=== PATIENT | female | born 1930 | race Caucasian/White ===

== ENCOUNTER → 2017-01-05 | Outpatient (CLI) | payer MEDICARE, OTHER ==
[~2017-01-05] MED LIST: /ALBU4TAB GT; ACET50TA PO; ADV500INH INH; ADVA115INH INH; ALBU0.5N IN; ALBU83IN INH; ALPH0.1S OU; ASPI325T PO; ASPI325T5 PO; ATOR1TAB18 PO; BRIM0.15 OP; BRIM2OPD OU; CALC600T9 PO; CALCTAB75 PO; CLON0.5T PO; DELT1TAB PO; DOXY10CA PO; DOXY75CA3 PO; FOSA70TA PO; KLON0.5T PO; LIPI10TA PO; LIPI80TA PO; LISI-542 PO; LISI10TA4 PO; LISI5TAB PO; METO-207 PO; METO50TA4 PO; METOPR; METOPROL; METOPROLOL; MICR10CA PO; MULT1TAB8 PO; MULTTAB4 PO; NITR4TASL SL; NITROQUICK SL; PARO20TA2 PO; PAXI20TA3 PO; PRED10TA2 PO; PRED1TAB32 PO; PRED20TA PO; SENO8.6T9 PO; SYMB80INH INH; TOPR25TA PO; TYLE650T30 PO; VITA100066 PO; VITAD1000T PO; [UNRECOGNIZED DRUG - CODE] EX
--- NOTE | 2017-01-07 08:37 | RADONC ---
RADIATION ONCOLOGY FOLLOWUP NOTE: DATE: 01/05/2017 CHART NUMBER: [id number] DIAGNOSIS: Breast cancer. STAGE: I, C3kD5H1 ECOG PERFORMANCE STATUS: 3 FOLLOWUP NOTE: Ms. 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 The patient presents today reporting that she is doing quite well with no complaints at this time related to her radiation therapy or disease. She has no breast or bone pain. The patient continues to have COPD and is using nasal oxygen. She has shortness of breath and is causing significant physical limitations. The patient's review of systems is positive for the physical limitations secondary to shortness of breath with her COPD and the need for nasal oxygen. She denies nausea, vomiting, fevers, chills, night sweats, diplopia, headaches, anxiety, depression, anorexia, weight loss, visual disturbances, chest pain, urinary or bowel difficulties, bone pain or neurological problems. PHYSICAL EXAMINATION: The patient is an elderly white female was quite frail in no acute distress and using nasal oxygen. HEENT exam is normocephalic, atraumatic. Extraocular movements are intact. There is no palpable cervical, supraclavicular, infraclavicular, axillary, or inguinal lymphadenopathy present. Lungs are clear to auscultation and percussion. Heart has a regular rate and rhythm. Abdomen is benign with no hepatosplenomegaly, masses, or tenderness. Breast examination reveals no masses or discharge bilaterally. Skeletal examination reveals no tenderness to pressure or percussion of the bony skeleton. Extremities reveal no clubbing, cyanosis, or edema. Neurologic exam is grossly intact, as is the remainder of the physical examination. ASSESSMENT: The patient is clinically AMA at this time and will be seen by us again in July for further followup. She will also continue to be followed by her other physicians as well. cc: Umberto Knott
== END ==
LOC: M ONCR 15:09
PROVIDERS: ATTEND Radiology Radiation Oncology
DX: C50.411 Malignant neoplasm of upper-outer quadrant of right female breast (principal)

== ENCOUNTER → 2017-07-25 | Outpatient (CLI) | payer MEDICARE, OTHER ==
[~2017-07-25] MED LIST changes: -ATOR1TAB18 PO; +ATOR80TA59 PO; +DOXY100T2 PO; -DOXY10CA PO; -METO-207 PO; +METO1TAB7 PO; -PARO20TA2 PO; +PARO20TA3 PO
--- NOTE | 2017-07-26 07:22 | RADONC ---
RADIATION ONCOLOGY FOLLOWUP NOTE DATE: 07/25/2017 CHART NUMBER: [id number] DIAGNOSIS: Right breast cancer STAGE: I A, [id number]. ECOG PERFORMANCE STATUS: 0. FOLLOWUP NOTE: Ms. 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 The patient reports today that she is doing quite well with no complaints at this time related to her radiation therapy or disease. She has no breast or bone pain. REVIEW OF SYSTEMS: The patient's review of systems is positive for the physical limitations secondary to shortness to shortness of breath from her COPD and the need for nasal oxygen. It is otherwise noncontributory. Denies nausea, vomiting, fevers , chills, night sweats, diplopia, headaches, anxiety or depression, anorexia, weight loss, visual disturbances, chest pain, urinary or bowel difficulties, bone pain, or neurological problems. PHYSICAL EXAMINATION: The patient is an elderly white female in no acute distress on nasal oxygen. HEENT exam is normocephalic, atraumatic. Extraocular movements are intact. There is no palpable cervical, supraclavicular, infraclavicular, axillary, or inguinal lymphadenopathy present. Lungs are clear to auscultation and percussion. Heart has a regular rate and rhythm. Abdomen is benign with no hepatosplenomegaly, masses, or tenderness. Breast examination reveals no masses or discharge bilaterally. Skeletal examination reveals no tenderness to pressure or percussion of the bony skeleton. Extremities reveal no clubbing, cyanosis, or edema. Neurologic exam is grossly intact, as is the remainder of the physical examination. ASSESSMENT: The patient is clinically AMA at this time and will be seen by us again in 1 year for further followup. She will also continue be followed by her other physicians as well. cc: MD TATI Manning
== END ==
LOC: M ONCR 10:18
PROVIDERS: ATTEND Radiology Radiation Oncology
DX: C50.411 Malignant neoplasm of upper-outer quadrant of right female breast (principal)

== ENCOUNTER → 2017-08-01 | Outpatient (CLI) | payer MEDICARE, OTHER ==
--- NOTE | 2017-08-01 10:05 | REPMRS ---
Patient History The patient states she had a clinical breast exam in 07/2017. Patient is postmenopausal, has history of breast cancer at age 79, had previous chest radiation therapy at age 79, has history of melanoma skin cancer at age 68, and had previous chemotherapy at age 68. Family history of breast cancer in maternal aunt at age 50 or over. Benign ultrasound-guided core biopsy of the right breast, August 06, 2016. Benign ultrasound-guided core biopsy of the right breast, August 22, 2015. Malignant localization of breast nodule of the right breast, August 19, 2010. Stereotatic Breast Biopsy of the right breast, August 03, 2010. Radiation therapy of the right breast. Digital Woman Screen Mammo: August 01, 2017 - Exam #: [id number] Bilateral CC and MLO view(s) were taken. Technologist: Josette Barahona, Technologist Prior study comparison: August 02, 2016, right breast digital mammo diagnostic unilateral, performed at [facility]. July 26, 2016, digital woman screen mammo performed at [facility]. FINDINGS: There are scattered fibroglandular densities. There is no evidence of cancer on this mammogram. Large coarse benign appearing calcifications are present. No significant changes when compared with prior studies. ASSESSMENT: BI-RADS/ACR category 2 mammogram. Benign finding(s). Recommendation Routine screening mammogram of both breasts in 1 year (for women over age 40). This mammogram was interpreted with the aid of an FDA-approved computer-aided dectection system. Electronically Signed By: Saurabh Marley MD 08/01/17 [id number]
== END ==
LOC: M WHC 08:49
PROVIDERS: ATTEND Radiology Radiation Oncology
DX: Z12.31 Encounter for screening mammogram for malignant neoplasm of breast (principal); Z85.3 Personal history of malignant neoplasm of breast

== ENCOUNTER → 2017-10-10 | Outpatient (REF) | payer MEDICARE, OTHER ==
[2017-10-10 17:39] LABS: ALBUMIN 3.7 GM/DL (3.2-5.2); ALBUMIN/GLOBULIN RATIO 1.19 (1.00-1.93); ALKALINE PHOSPHATASE 61 U/L (45-117); ALT/SGPT 19 U/L (12-78); ANION GAP 6 MEQ/L (8-16); AST/SGOT 24 U/L (7-37); BILIRUBIN,TOTAL 0.7 MG/DL (0.2-1.0); BLOOD UREA NITROGEN 16 MG/DL (7-18); CARBON DIOXIDE LEVEL 36 MEQ/L (21-32); CHLORIDE LEVEL 100 MEQ/L (98-107); CHOLESTEROL LEVEL 155 MG/DL (<200); CREATININE FOR GFR 0.78 MG/DL (0.55-1.02); GLOMERULAR FILTRATION RATE > 60.0 (>32); GLUCOSE, FASTING 90 MG/DL (83-110); POTASSIUM SERUM 4.4 MEQ/L (3.5-5.1); SODIUM LEVEL 142 MEQ/L (136-145); TOTAL PROTEIN 6.8 GM/DL (6.4-8.2); TRIGLYCERIDES LEVEL 111 MG/DL (<150)
[2017-10-10 17:47] LABS: BASO # 0.1 10^3/uL (0.0-0.2); BASO % 0.7 % (0.0-1.0); EOS # 0.3 10^3/uL (0.0-0.50); EOS % 3.8 % (0.0-3.0); IMMATURE GRANULOCYTE % 0.3 % (0-0); LYMPH # 1.7 10^3/uL (1.5-4.5); LYMPH % 24.4 % (24.0-44.0); MEAN CORPUSCULAR HEMOGLOBIN 34.6 pg (27.0-33.0); MEAN CORPUSCULAR HGB CONC 32.7 g/dl (32.0-36.5); MEAN CORPUSCULAR VOLUME 105.9 fl (80.0-96.0); MONO # 0.5 10^3/uL (0.0-0.8); MONO % 7.2 % (0.0-5.0); NEUTROPHILS # 4.3 10^3/uL (1.8-7.7); NEUTROPHILS % 63.6 % (36.0-66.0); PLATELET COUNT, AUTOMATED 207 10^3/uL (150-450); RED CELL DISTRIBUTION WIDTH 12.9 % (11.5-14.5); WHITE BLOOD COUNT 6.8 10^3/uL (4.0-10.0)
== END ==
LOC: M SFHCCLAY 11:50
PROVIDERS: ATTEND Family Medicine
DX: C43.60 Malignant melanoma of unspecified upper limb, including shoulder (principal); I10 Essential (primary) hypertension; I25.10 Atherosclerotic heart disease of native coronary artery without angina pectoris
CPT/HCPCS: 36415; 80053; 80061; 85025; G0463

== ENCOUNTER → 2018-07-24 | Outpatient (CLI) | payer MEDICARE, OTHER | LOC: M ONCR 09:26 | DX: C50.411 Malignant neoplasm of upper-outer quadrant of right female breast (principal) ==

== ENCOUNTER → 2018-07-24 | Outpatient (CLI) | payer MEDICARE, OTHER | LOC: M WHC 10:16 | DX: Z12.31 Encounter for screening mammogram for malignant neoplasm of breast (principal) | CPT/HCPCS: 77067 ==

== ENCOUNTER → 2018-10-02 | Outpatient (REF) | payer MEDICARE, OTHER ==
[2018-10-02 16:57] LABS: ALBUMIN 3.7 GM/DL (3.2-5.2); ALBUMIN/GLOBULIN RATIO 1.32 (1.00-1.93); ALKALINE PHOSPHATASE 70 U/L (45-117); ALT/SGPT 22 U/L (12-78); ANION GAP 8 MEQ/L (8-16); AST/SGOT 17 U/L (7-37); BILIRUBIN,TOTAL 0.8 MG/DL (0.2-1.0); BLOOD UREA NITROGEN 19 MG/DL (7-18); CALCIUM LEVEL 9.3 MG/DL (8.8-10.2); CARBON DIOXIDE LEVEL 37 MEQ/L (21-32); CHLORIDE LEVEL 100 MEQ/L (98-107); CHOLESTEROL LEVEL 137 MG/DL (<200); CHOLESTEROL RISK RATIO 2.283 (<5); GLOMERULAR FILTRATION RATE 45.2 (>32); GLUCOSE, FASTING 182 MG/DL (70-100); HDL CHOLESTEROL 60 MG/DL (>40); LDL CHOLESTEROL 49 MG/DL (<100); NON-HDL-C 77 MG/DL; POTASSIUM SERUM 3.8 MEQ/L (3.5-5.1); SODIUM LEVEL 145 MEQ/L (136-145); TOTAL PROTEIN 6.5 GM/DL (6.4-8.2); TRIGLYCERIDES LEVEL 139 MG/DL (<150)
[2018-10-02 17:05] LABS: BASO # 0.1 10^3/uL (0.0-0.2); BASO % 0.6 % (0.0-1.0); EOS # 0.3 10^3/uL (0.0-0.50); EOS % 2.7 % (0.0-3.0); HEMATOCRIT 32.7 % (36.0-47.0); HEMOGLOBIN 10.5 g/dl (12.0-15.5); IMMATURE GRANULOCYTE % 0.5 % (0-3.0); LYMPH # 1.8 10^3/uL (1.5-4.5); LYMPH % 16.2 % (24.0-44.0); MEAN CORPUSCULAR HGB CONC 32.1 g/dl (32.0-36.5); MONO # 0.6 10^3/uL (0.0-0.8); MONO % 5.5 % (0.0-5.0); NEUTROPHILS % 74.5 % (36.0-66.0); PLATELET COUNT, AUTOMATED 196 10^3/uL (150-450); WHITE BLOOD COUNT 10.8 10^3/uL (4.0-10.0)
== END ==
LOC: M SFHCCLAY 10:15
DX: I25.10 Atherosclerotic heart disease of native coronary artery without angina pectoris (principal); D63.8 Anemia in other chronic diseases classified elsewhere; I10 Essential (primary) hypertension
CPT/HCPCS: 80053

== ENCOUNTER → 2018-10-16 | Outpatient (REF) | payer MEDICARE, OTHER ==
[2018-10-16 17:35] LABS: ESTIMATED AVERAGE GLUCOSE 103 MG/DL (60-110); HEMOGLOBIN A1c 5.2 %
== END ==
LOC: M SFHCCLAY 09:47
DX: E11.9 Type 2 diabetes mellitus without complications (principal)
CPT/HCPCS: 83036

== ENCOUNTER 2019-01-30 19:24 | Observation (INO) | payer MEDICARE, OTHER ==
[~2019-01-30] VITALS: Ht 160 cm; Wt 68.2 kg
[~2019-01-30 19:24] MED LIST changes: -CLON0.5T PO; +CLON0.5T8 PO
[2019-01-30] MEDS ORDERED: ALPH0.156 OP (19:50)
[2019-01-30] MEDS ORDERED: XALA0.007 OP (19:50)
[2019-01-30] MEDS ORDERED: PRESCAP PO ×2 (19:50→21:16)
[2019-01-30] MEDS ORDERED: STOO100C PO (19:50)
[2019-01-30] MEDS ORDERED: VENTAER INH ×2 (19:50→21:16)
[2019-01-30 20:13] LABS: BASO % 0.5 % (0.0-1.0); EOS # 0.2 10^3/uL (0.0-0.50); EOS % 1.8 % (0.0-3.0); HEMATOCRIT 31.9 % (36.0-47.0); HEMOGLOBIN 10.4 g/dl (12.0-15.5); LYMPH # 1.8 10^3/uL (1.5-4.5); LYMPH % 20.8 % (24.0-44.0); MEAN CORPUSCULAR HEMOGLOBIN 34.7 pg (27.0-33.0); MEAN CORPUSCULAR HGB CONC 32.6 g/dl (32.0-36.5); MEAN CORPUSCULAR VOLUME 106.3 fl (80.0-96.0); MONO # 0.6 10^3/uL (0.0-0.8); MONO % 6.7 % (0.0-5.0); NEUTROPHILS # 6.1 10^3/uL (1.8-7.7); NEUTROPHILS % 69.4 % (36.0-66.0); PLATELET COUNT, AUTOMATED 207 10^3/uL (150-450); WHITE BLOOD COUNT 8.8 10^3/uL (4.0-10.0)
--- NOTE | 2019-01-30 20:40 | REP ---
CT BRAIN WITHOUT CONTRAST: CT brain performed without IV contrast. COMPARISON: 09/10/2016 There is mild atrophy. There is no midline shift or mass effect. Marley/white differentiation is well maintained. There is some minimal periventricular small vessel ischemic change/gliosis. There is no acute intracranial hemorrhage or extra-axial fluid collection. Vascular calcifications are seen in the carotid siphons. The visualized paranasal sinuses and mastoid air cells are clear. IMPRESSION: Atrophy with minimal periventricular small vessel ischemic change. No acute hemorrhage. Vascular calcifications in carotid siphons. Electronically Signed by Saurabh Marley MD 01/31/2019 02:37 P
[2019-01-30 20:42] LABS: INR 1.03; PARTIAL THROMBOPLASTIN TIME 28.7 SECONDS (25.4-37.6); PROTHROMBIN TIME 13.6 SECONDS (12.1-14.4)
[2019-01-30 20:43] LABS: ALBUMIN 3.6 GM/DL (3.2-5.2); ALT/SGPT 24 U/L (12-78); BILIRUBIN,DIRECT 0.2 MG/DL (0.0-0.2); BILIRUBIN,TOTAL 0.7 MG/DL (0.2-1.0); BLOOD UREA NITROGEN 14 MG/DL (7-18); CALCIUM LEVEL 8.9 MG/DL (8.8-10.2); CARBON DIOXIDE LEVEL 34 MEQ/L (21-32); CHLORIDE LEVEL 98 MEQ/L (98-107); CPK CREATINE PHOSPHOKINASE 73 U/L (26-192); CREATININE FOR GFR 0.92 MG/DL (0.55-1.30); GLOMERULAR FILTRATION RATE > 60.0 (>32); GLUCOSE, FASTING 111 MG/DL (70-100); MB/CK RELATIVE INDEX 1.92 (< OR =4); POTASSIUM SERUM 3.9 MEQ/L (3.5-5.1); SODIUM LEVEL 138 MEQ/L (136-145); TOTAL PROTEIN 6.5 GM/DL (6.4-8.2); TROPONIN I < 0.02 NG/ML (< 0.10)
[2019-01-30] MEDS ORDERED: ONDANSETRON 4MG/2ML VIAL (J2405) IV ONE (20:45)
[2019-01-30] MEDS: BRIMONIDINE 0.15% OPHTH SOLN 5 ML OU SCH (21:00)
[2019-01-30] MEDS: LATANOPROST 0.005% OPHTH SOLN 2.5 ML OU SCH (21:00)
--- NOTE | 2019-01-30 21:14 | REP ---
PORTABLE CHEST: AP portable view of the chest is performed and compared to prior study of 09/10/2016. There is mild cardiomegaly. There is mild bibasilar fibrotic change. There is no acute infiltrate. There is calcification of the thoracic aorta. The mediastinal silhouette is unchanged. IMPRESSION: Mild cardiomegaly. No acute infiltrate. Electronically Signed by Saurabh Marley MD 01/31/2019 02:42 P
[2019-01-30] MEDS ORDERED: ASPI-222 PO (21:16)
[2019-01-30] MEDS ORDERED: CLON0.5T8 PO (21:16)
[2019-01-30] MEDS ORDERED: ALBU83IN INH (21:16)
[2019-01-30] MEDS ORDERED: VITA100066 PO (21:16)
[2019-01-30] MEDS ORDERED: METO1TAB7 PO (21:16)
[2019-01-30] MEDS ORDERED: FOSA70TA PO (21:16)
[2019-01-30] MEDS ORDERED: CALCTAB41 PO (21:16)
[2019-01-30] MEDS ORDERED: NITR4TASL SL (21:16)
[2019-01-30] MEDS ORDERED: SYMB80INH INH (21:16)
[2019-01-30] MEDS ORDERED: XALA0.007 OU (21:16)
[2019-01-30] MEDS ORDERED: ATOR80TA59 PO (21:16)
[2019-01-30] MEDS ORDERED: PARO20TA4 PO (21:16)
[2019-01-30] MEDS ORDERED: ALPH0.156 OU (21:16)
[2019-01-30] MEDS ORDERED: PERCOCET 5MG/325MG TAB PO PRN (23:45)
[2019-01-30] MEDS ORDERED: ONDANSETRON 4 MG TAB (S0181) PO PRN (23:45)
[2019-01-30] MEDS ORDERED: ACETAMINOPHEN TAB 650MG DOSE (2X325MG) PO PRN (23:45)
--- NOTE | 2019-01-30 23:50 | REPVR ---
EXAM: MR Head Without Contrast EXAM DATE/TIME: 01/30/2019 11:44 PM CLINICAL HISTORY: 88 years old, female; Signs and symptoms; Altered mental status/memory loss; Patient HX: Weakness, ataxia, h/a; Additional info: CVA TECHNIQUE: Imaging protocol: MR of the head without contrast. COMPARISON: CT Head without contrast 01/30/2019 7:51 PM FINDINGS: Brain: There is hyperintense signal in the periventricular white matter. There is several additional hyperintense foci scattered throughout the white matter. DWI images demonstrate no evidence of acute infarct. Gradient echo images demonstrate no evidence of hemorrhage. There is no extra-axial collection. There is no mass. There are no abnormal flow voids. Ventricles: There is no hydrocephalus. Bones/joints: Unremarkable. Soft tissues: Normal. Sinuses: Normal as visualized. No acute sinusitis. Mastoid air cells: Normal as visualized. No mastoid effusion. Orbits: Unremarkable. IMPRESSION: Mild chronic microvascular disease. No acute lesion or injury. Electronically signed by: Nas Lux On 01/30/2019 23:50:01 PM
--- NOTE | 2019-01-30 23:54 | REPVR ---
EXAM: MR Angiogram Head Without Contrast, Arteries EXAM DATE/TIME: 01/30/2019 11:44 PM CLINICAL HISTORY: 88 years old, female; Signs and symptoms; Cognitive deficit; Altered mental status; Patient HX: Weakness, ataxia, h/a; Additional info: CVA TECHNIQUE: Imaging protocol: MR angiogram head without contrast. Exam focused on the arteries. 3D rendering: MIP reconstructed images were created and reviewed. COMPARISON: CT Head without contrast 01/30/2019 7:51 PM FINDINGS: Right internal carotid artery: Unremarkable. Intracranial segment is patent with no significant stenosis. No aneurysm. Right anterior cerebral artery: Unremarkable. No occlusion or significant stenosis. No aneurysm. Right middle cerebral artery: Unremarkable. No occlusion or significant stenosis. No aneurysm. Right posterior cerebral artery: Unremarkable. No occlusion or significant stenosis. No aneurysm. Right vertebral artery: Unremarkable. No occlusion or significant stenosis. No aneurysm. Left internal carotid artery: Unremarkable. Intracranial segment is patent with no significant stenosis. No aneurysm. Left anterior cerebral artery: Severe stenosis at Junction of the A1 and A2 segments of the left anterior cerebral artery. No occlusion. Left middle cerebral artery: Unremarkable. No occlusion or significant stenosis. No aneurysm. Left posterior cerebral artery: Unremarkable. No occlusion or significant stenosis. No aneurysm. Left vertebral artery: Unremarkable. No occlusion or significant stenosis. No aneurysm. Basilar artery: Unremarkable. No occlusion or significant stenosis. No aneurysm. 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 Electronically signed by: Nas Lux On 01/30/2019 23:54:32 PM
[2019-01-31 01:13] VITALS: BP 140/81
[2019-01-31] MEDS ORDERED: NITROGLYCERIN 0.4 MG SUBL TABLET SL PRN (01:45)
[2019-01-31] MEDS ORDERED: clonazePAM 0.5 MG TAB PO PRN (01:45)
[2019-01-31] MEDS ORDERED: ALBUTEROL SULFATE 2.5 MG/0.5 ML INH NEB SOLN INH PRN (01:45)
--- NOTE | 2019-01-31 05:51 | HPEPDOC ---
General Date of Admission Jan 30, 2019 at 19:25 Attending Physician: A Chief Complaint The patient is a 88-year-old female presented to the ED for word finding difficulties vs memory lapses. patient said it the first time she finds herself having difficulties remembering things. Her daughter was speaking to her earlier in and noticed that she was taking a long time to respond. Patient denied any other symptoms including fever , chills, chest pain, sob, dysuria, hematuria, nausea, vomiting or diarrhea , She denied weakness in extremities or headache. 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 Allergies - see below Physical Exam GEN: NAD , normal built, HEENT: normocephalic, atraumatic, PERRLA, EOMI, externbal ears appears normal, hearing intact, neck supple, no pharyngeal erythema CVS : normal S1, S2 no murmur, rubs or gallops , PMI nondisplaced RESP: LTACB, no rals, rhonchi, crackles or wheezes ABD - +BS, soft, NT, ND , no cva tenderness MSK no joint swelling, FROM, no muscle tenderness Neuro no focal deficit, AOAX3 Lymphatics- no lymphedema, no lymphadenopathy in cervical and supraclavicular chains Psych- normal mood and affect, good judgement and insight Labs, ekg and images reviewed MRA - 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 Burgos (neuro) consulted - c/w statin and aspirin - f/u lipid panel and hba1c resume home meds for chronic illnesses dvt ppx full code, from home, no svc Home Medications Scheduled Alendronate Sodium (Fosamax) 70 Mg Tab, 70 MG PO 1XWK, (Reported) TUESDAY MORNINGS Aspirin (Aspirin) 325 Mg Tab, 325 MG PO DAILY, (Reported) Atorvastatin Calcium (Atorvastatin Calcium) 80 Mg Tab, 80 MG PO 3XW, (Reported) TUESDAY, TUESDAY AND TUESDAY MORNINGS Brimonidine Tartrate 0.15% (Alphagan P) 0.15 % Emely, 1 DROP OU BID, (Reported) Budesonide/Formoterol (Symbicort 80-4.5 Mcg/Act) 60 Puff/Inhaler Aers, 2 PUFF INH BID, (Reported) Calcium/Vitamin D (Calcium 500+D 500-400 mg-Unit) 1 Tab Tab, 1 TAB PO BID, (Reported) Cholecalciferol (Vitamin D) 1,000 Unit Tab, 1,000 UNIT PO DAILY, (Reported) Latanoprost (Xalatan) 0.005 % Emely, 1 DROP OU QHS, (Reported) Metoprolol Succinate (Metoprolol Succinate ER) 50 Mg Tab, 50 MG PO DAILY, (Reported) Multivitamin Areds (Preservision Areds) 1 Cap Cap, 1 CAP PO DAILY, (Reported) Paroxetine Hydrochloride (Paroxetine) 20 Mg Tab, 20 MG PO DAILY, (Reported) Scheduled PRN Albuterol Sulfate (Albuterol Sulfate) 2.5 Mg/3 Ml Nebu, 2.5 MG INH QID PRN for SHORTNESS OF BREATH, (Reported) Albuterol Sulfate (Ventolin Hfa) 108 Mcg/Act Aer, 2 PUFFS INH Q4H PRN for SHOR TNESS OF BREATH, (Reported) Clonazepam (Clonazepam) 0.5 Mg Tab, 0.5 MG PO TID PRN for ANXIETY, (Reported) Nitroglycerin (Nitrostat) 0.4 Mg Subl, 0.4 MG SL NITRO PRN for CHEST PAIN, (Reported) Allergies Coded Allergies: Cephalosporins (Verified Allergy, Unknown, 01/30/19) Penicillins (Verified Allergy, Unknown, 01/30/19) Penicillins Cross Reactors (Verified Allergy, Unknown, 01/30/19) Quinolones (Verified Allergy, Unknown, 01/30/19) Vital Signs Vital Signs Date Time Temp Pulse Resp B/P (MAP) Pulse Ox O2 Delivery O2 Flow Rate FiO2 01/31/19 01:08 97.1 01/31/19 00:47 162/72 (102) 01/30/19 23:30 68 18 98 Room Air 01/30/19 20:00 2.0 Laboratory Data Labs 24H Laboratory Tests 2 01/30/19 19:36: Urine Color STRAW, Urine Appearance CLEAR, Urine pH 8.0, Urine Specific [place] 1.010, Urine Protein NEGATIVE, Urine Glucose (UA) NEGATIVE, Urine Ketones NEGATIVE, Urine Blood NEGATIVE, Urine Nitrite NEGATIVE, Urine Bilirubin NEGATIVE, Urine Urobilinogen 0.2, Urine Leukocyte Esterase NEGATIVE, Urine WBC (Auto) 5H, Urine RBC (Auto) 1, Urine Hyaline Casts (Auto) 0, Urine Bacteria (Auto) NEGATIVE, Urine Squamous Epithelial Cells 0, Urine Sperm (Auto) 01/30/19 19:40: Bedside Glucose (Misc Panel) 118H 01/30/19 19:55: Immature Granulocyte % (Auto) 0.8, White Blood Count 8.8, Red Blood Count 3.00L, Hemoglobin 10.4L, Hematocrit 31.9L, Mean Corpuscular Volume 106.3H, Mean Corpuscular Hemoglobin 34.7H, Mean Corpuscular Hemoglobin Concent 32.6, Red Cell Distribution Width 13.2, Platelet Count 207, Neutrophils (%) (Auto) 69.4H, Lymphocytes (%) (Auto) 20.8L, Monocytes (%) (Auto) 6.7H, Eosinophils (%) (Auto) 1.8, Basophils (%) (Auto) 0.5, Neutrophils # (Auto) 6.1, Lymphocytes # (Auto) 1.8, Monocytes # (Auto) 0.6, Eosinophils # (Auto) 0.2, Basophils # (Auto) 0.0, Nucleated Red Blood Cells % (auto) 0.2H, Anion Gap 6L, Glomerular Filtration Rate > 60.0, Calcium Level 8.9, Aspartate Amino Transf (AST/SGOT) 28, Alanine Aminotransferase (ALT/SGPT) 24, Alkaline Phosphatase 73, Total Bilirubin 0.7, D irect Bilirubin 0.2, Total Creatine Kinase 73, Creatine Kinase MB 1.0, Creatine Kinase MB Relative Index 1.92, Troponin I < 0.02, Total Protein 6.5, Albumin 3.6, Albumin/Globulin Ratio 1.24, Thyroid Stimulating Hormone (TSH) 2.510 01/30/19 20:21: Prothrombin Time 13.6, Prothromb Time International Ratio 1.03, Activated Partial Thromboplast Time 28.7 CBC/BMP Laboratory Tests 01/30/19 19:55 Red Blood Count 3.00 L, Mean Corpuscular Volume 106.3 H, Mean Corpuscular Hemoglobin 34.7 H, Mean Corpuscular Hemoglobin Concent 32.6, Red Cell Distribution Width 13.2, Neutrophils (%) (Auto) 69.4 H, Lymphocytes (%) (Auto) 20.8 L, Monocytes (%) (Auto) 6.7 H, Eosinophils (%) (Auto) 1.8, Basophils (%) (Auto) 0.5, Neutrophils # (Auto) 6.1, Lymphocytes # (Auto) 1.8, Monocytes # (Auto) 0.6, Eosinophils # (Auto) 0.2, Basophils # (Auto) 0.0 Plan / VTE VTE Prophylaxis Ordered?: Yes FRANCES YOUSSEF MD Jan 31, 2019 01:15
[2019-01-31 06:00] VITALS: BP 151/70
[2019-01-31 06:59] LABS: BASO % 0.5 % (0.0-1.0); EOS # 0.1 10^3/uL (0.0-0.50); EOS % 2.3 % (0.0-3.0); HEMATOCRIT 30.3 % (36.0-47.0); HEMOGLOBIN 9.9 g/dl (12.0-15.5); LYMPH # 1.8 10^3/uL (1.5-4.5); MEAN CORPUSCULAR HEMOGLOBIN 34.6 pg (27.0-33.0); MEAN CORPUSCULAR HGB CONC 32.7 g/dl (32.0-36.5); MEAN CORPUSCULAR VOLUME 105.9 fl (80.0-96.0); MONO # 0.5 10^3/uL (0.0-0.8); MONO % 8.5 % (0.0-5.0); NEUTROPHILS # 3.2 10^3/uL (1.8-7.7); NEUTROPHILS % 57.2 % (36.0-66.0); PLATELET COUNT, AUTOMATED 199 10^3/uL (150-450); RED BLOOD COUNT 2.86 10^6/uL (4.00-5.40); WHITE BLOOD COUNT 5.7 10^3/uL (4.0-10.0)
[2019-01-31 07:20] LABS: BLOOD UREA NITROGEN 11 MG/DL (7-18); CALCIUM LEVEL 8.8 MG/DL (8.8-10.2); CARBON DIOXIDE LEVEL 36 MEQ/L (21-32); CHLORIDE LEVEL 101 MEQ/L (98-107); CREATININE FOR GFR 0.73 MG/DL (0.55-1.30); GLOMERULAR FILTRATION RATE > 60.0 (>32); GLUCOSE, FASTING 115 MG/DL (70-100); MAGNESIUM LEVEL 1.9 MG/DL (1.8-2.4); POTASSIUM SERUM 3.6 MEQ/L (3.5-5.1); SODIUM LEVEL 141 MEQ/L (136-145)
[2019-01-31 07:31] LABS: CHOLESTEROL RISK RATIO 2.078 (<5); THYROID STIMULATING HORMONE 3.25 uIU/ML (0.358-3.740)
[2019-01-31 07:38] LABS: HEMOGLOBIN A1c 4.9 %
[2019-01-31] MEDS: SYMBICORT 80/4.5MCG INHALER 6GM INH SCH ×2 (07:51→20:37)
[2019-01-31] MEDS: VITAMIN D 1,000 INTERNATIONAL UNITS TABLET PO SCH (10:01)
[2019-01-31] MEDS: METOPROLOL SUCC (TopROL XL) 50MG **XL** TAB PO SCH (10:01)
[2019-01-31] MEDS: OCUVITE 1 TAB PO SCH (10:01)
[2019-01-31] MEDS: SENOKOT S TAB PO SCH ×2 (10:02→20:12)
[2019-01-31] MEDS: ASPIRIN 81 MG ENTERIC TAB PO SCH (10:02)
[2019-01-31 14:00] VITALS: BP 149/68
[2019-01-31] MEDS: BRIMONIDINE 0.15% OPHTH SOLN 5 ML OU SCH ×2 (14:55→20:12)
[2019-01-31] MEDS: LATANOPROST 0.005% OPHTH SOLN 2.5 ML OU SCH (20:12)
[2019-01-31] MEDS ORDERED: ATORVASTATIN 20 MG TAB PO SCH (21:00)
--- NOTE | 2019-01-31 21:18 | ECGEPIP ---
Stationary ECG Study [facility] - ED Test Date: 2019-01-30 Pat Name: BRENT HAYES Department: Room: [place] [address] Gender: F Electro Tech: annette : 1930 Requested By: CALVIN Madrigal Order Number: [id number] Reading MD: Corine Nguyễn Measurements Intervals Maynard Rate: 73 P: -66 MT: 153 QRS: 63 QRSD: 90 T: 64 QT: 396 QTc: 439 Interpretive Statements ECTOPIC ATRIAL RHYTHM NONSPECIFIC ST & T-WAVE ABNORMALITY ABNORMAL RHYTHM ECG SIMILAR 09/11/16 Electronically Signed On 01-31-2019 21:18:08 EDT by Corine Nguyễn
[2019-01-31 22:00] VITALS: BP 137/67
--- NOTE | 2019-01-31 23:49 | IPNPDOC ---
Subjective Date Seen The patient was seen on 01/31/19. Subjective Chief Complaint/HPI Patient had no trouble with wordfinding or enunciation, but was pleasantly confused and disoriented. She reported that it was almost summer of 1924, and did not know where she was or what she was doing here. Denied any complaints. Constitutional: Denies: Chills, Fever Pulmonary: Denies: Dyspnea, Cough Cardiovascular: Denies: Chest Pain Gastrointestinal: Denies: Nausea, Vomiting, Diarrhea, Constipation Neurological: Reports: Confusion; Denies: Weakness, Incoordination, Change in speech Objective Physical Examination General Exam: Positive: Alert, Cooperative Chest Exam: Positive: Clear to auscultation, Normal air movement Heart Exam: Positive: Rate Normal Abdomen Exam: Positive: Normal bowel sounds, Soft; Negative: Tenderness Skin Exam: Positive: Nl turgor and temperature Neuro Exam: Positive: Normal Speech, Strength at 5/5 X4 ext, Normal Tone, Sensation Intact, Cranial Nerves 3-12 NL Psych Exam: Positive: Mood NL; Negative: Memory Intact, Oriented x 3 Assessment /Plan Problems (1) Transient ischemic attack (TIA) Status: Acute Problem Text: Neurology consulted. No trouble with wordfinding or enunciation at this point. Current exam suggests perhaps underlying dementia. 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 Carotid US pending. Currently on statin, beta-javier, aspirin. (2) HTN (hypertension) Status: Chronic Problem Text: Continue home metoprolol. (3) Anxiety and depression Status: Chronic Problem Text: Continue home Klonopin. (4) HLD (hyperlipidemia) Status: Chronic Problem Text: On statin. (5) History of coronary artery disease Permanent Comment: [place] in 2001. Last Edited By: Johnson Velazquez DO on Jan 31, 2019 23:47 Status: Chronic (6) COPD (chronic obstructive pulmonary disease) Status: Chronic Problem Text: Appears at baseline. Continue home inhalers. Plan/VTE VTE Prophylaxis Ordered?: Yes VS, I&O, 24H, Fishbone Vital Signs/I&O Vital Signs Date Time Temp Pulse Resp B/P (MAP) Pulse Ox O2 Delivery O2 Flow Rate FiO2 01/31/19 22:00 97.4 65 19 137/67 (90) 98 2.0 01/30/19 23:30 Room Air I&O- Last 24 Hours up to 6 AM 01/31/19 06:00 Intake Total 480 ml Balance 480 ml Laboratory Data 24H LABS Laboratory Tests 2 01/31/19 06:44: Immature Granulocyte % (Auto) 0.5, White Blood Count 5.7, Red Blood Count 2.86L, Hemoglobin 9.9L, Hematocrit 30.3L, Mean Corpuscular Volume 105.9H, Mean Corpuscular Hemoglobin 34.6H, Mean Corpuscular Hemoglobin Concent 32.7, Red Cell Distribution Width 13.1, Platelet Count 199, Neutrophils (%) (Auto) 57.2, Lymphocytes (%) (Auto) 31.0, Monocytes (%) (Auto) 8.5H, Eosinophils (%) (Auto) 2.3, Basophils (%) (Auto) 0.5, Neutrophils # (Auto) 3.2, Lymphocytes # (Auto) 1.8, Monocytes # (Auto) 0.5, Eosinophils # (Auto) 0.1, Basophils # (Auto) 0.0, Nucleated Red Blood Cells % (auto) 0.0, Anion Gap 4L, Glomerular Filtration Rate > 60.0, Estimated Mean Plasma Glucose 94, Hemoglobin A1c 4.9, Blood Urea Nitrogen 11, Creatinine 0.73, Sodium Level 141, Potassium Level 3.6, Chloride Level 101, Carbon Dioxide Level 36H, Calcium Level 8.8, Magnesium Level 1.9, Triglycerides Level 78, LDL Cholesterol 53, Total Cholesterol 133, Non-HDL Cholesterol (LDL + VLDL) 69, Total HDL Cholesterol 64, Cholesterol/HDL Ratio 2.078, Thyroid Stimulating Hormone (TSH) 3.250 CBC/BMP Laboratory Tests 01/31/19 06:44 Red Blood Count 2.86 L, Mean Corpuscular Volume 105.9 H, Mean Corpuscular Hemoglobin 34.6 H, Mean Corpuscular Hemoglobin Concent 32.7, Red Cell Distribution Width 13.1, Neutrophils (%) (Auto) 57.2, Lymphocytes (%) (Auto) 31.0, Monocytes (%) (Auto) 8.5 H, Eosinophils (%) (Auto) 2.3, Basophils (%) (Auto) 0.5, Neutrophils # (Auto) 3.2, Lymphocytes # (Auto) 1.8, Monocytes # (Auto) 0.5, Eosinophils # (Auto) 0.1, Basophils # (Auto) 0.0, Calcium Level 8.8 JOHNSON VELAZQUEZ DO Jan 31, 2019 23:49
[2019-02-01 06:00] VITALS: BP 141/63
--- NOTE | 2019-02-01 06:39 | ECHO ---
DATE OF PROCEDURE: 01/31/2019 DATE OF : 1930 AGE: 88 REFERRING PROVIDER: Dr. Jocy Bragg PATIENT LOCATION: Room 5140 REASON FOR THE ECHOCARDIOGRAM: Transient ischemic attack (TIA). 2D MEASUREMENTS: IVS: 1.1 cm LV: 4.7 cm LVPW: 1.1 cm LA: 3.3 cm Aorta: 3.0 cm IVC: 1.7 cm DOPPLER MEASUREMENTS: Peak velocity across the aortic valve: 1.4 m/s Peak velocity across the LVOT: 0.96 m/s Mitral E: 0.71 Mitral A: 1.0 Ratio: 0.7 Maximum tricuspid valve velocity: 2.2 m/s 2D COMMENTS: 1. Normal left ventricular size, wall thickness, and normal global left ventricular systolic function. The estimated left ventricular systolic ejection fraction is 60-65%. 2. Normal left atrium. Normal right atrium and right ventricle. 3. The atrial septum appeared to be normal without evidence of defect or shunt. 4. Normal aortic root. 5. No pericardial effusion seen. 6. Mildly calcified aortic valve with normal leaflet excursion. Moderately calcified mitral annulus with normal anterior mitral valve leaflet motion. Normal tricuspid valve. The pulmonic valve and proximal pulmonary artery branches were not well visualized. 7. The inferior vena cava was normal in size, central venous pressure is probably normal. DOPPLER: It detects trace mitral regurgitation, trace tricuspid regurgitation. The calculated pulmonary artery systolic pressure was normal. Abnormal relaxation pattern was noted across the mitral valve leaflet as well as the mitral valve annulus consistent with delayed relaxation. IMPRESSION: 1. Normal global left ventricular systolic function. There are some features of left ventricular diastolic dysfunction manifested by abnormal relaxation. 2. Aortic valve sclerosis without stenosis or aortic regurgitation. 3. Mitral annulus calcification with trace mitral regurgitation. 4. Trace tricuspid regurgitation with a normal calculated pulmonary artery systolic pressure. 5. Not mentioned above, mild atherosclerotic plaques noted in the aorta. MTDD
[2019-02-01 08:15] LABS: BASO # 0.1 10^3/uL (0.0-0.2); BASO % 0.6 % (0.0-1.0); EOS # 0.3 10^3/uL (0.0-0.50); EOS % 3.5 % (0.0-3.0); HEMATOCRIT 33.3 % (36.0-47.0); HEMOGLOBIN 10.9 g/dl (12.0-15.5); LYMPH % 24.2 % (24.0-44.0); MEAN CORPUSCULAR HEMOGLOBIN 35.7 pg (27.0-33.0); MEAN CORPUSCULAR HGB CONC 32.7 g/dl (32.0-36.5); MEAN CORPUSCULAR VOLUME 109.2 fl (80.0-96.0); MONO # 0.6 10^3/uL (0.0-0.8); MONO % 7.7 % (0.0-5.0); NEUTROPHILS # 5.2 10^3/uL (1.8-7.7); NEUTROPHILS % 63.5 % (36.0-66.0); PLATELET COUNT, AUTOMATED 208 10^3/uL (150-450); RED BLOOD COUNT 3.05 10^6/uL (4.00-5.40); WHITE BLOOD COUNT 8.2 10^3/uL (4.0-10.0)
[2019-02-01] MEDS: VITAMIN D 1,000 INTERNATIONAL UNITS TABLET PO SCH (08:29)
[2019-02-01] MEDS: ENOXAPARIN 40 MG/0.4 ML SYRINGE (J1650) SC SCH (08:29)
[2019-02-01] MEDS: METOPROLOL SUCC (TopROL XL) 50MG **XL** TAB PO SCH (08:29)
[2019-02-01] MEDS: OCUVITE 1 TAB PO SCH (08:29)
[2019-02-01] MEDS: SENOKOT S TAB PO SCH ×2 (08:30→20:11)
[2019-02-01] MEDS: BRIMONIDINE 0.15% OPHTH SOLN 5 ML OU SCH ×2 (08:30→20:11)
[2019-02-01] MEDS: ASPIRIN 81 MG ENTERIC TAB PO SCH (08:30)
[2019-02-01 08:35] LABS: BLOOD UREA NITROGEN 16 MG/DL (7-18); CALCIUM LEVEL 9.2 MG/DL (8.8-10.2); CARBON DIOXIDE LEVEL 35 MEQ/L (21-32); CHLORIDE LEVEL 100 MEQ/L (98-107); CREATININE FOR GFR 0.87 MG/DL (0.55-1.30); GLOMERULAR FILTRATION RATE > 60.0 (>32); GLUCOSE, FASTING 98 MG/DL (70-100); MAGNESIUM LEVEL 2.1 MG/DL (1.8-2.4); POTASSIUM SERUM 3.8 MEQ/L (3.5-5.1); SODIUM LEVEL 139 MEQ/L (136-145)
[2019-02-01] MEDS: SYMBICORT 80/4.5MCG INHALER 6GM INH SCH ×2 (09:03→19:49)
--- NOTE | 2019-02-01 09:45 | REP ---
CAROTID ULTRASOUND: Real-time ultrasound evaluation and duplex Doppler interrogation of the extracranial carotid vasculature is performed. There is mild to moderate plaquing and narrowing in both carotid bulbs extending into the internal and external carotid arteries. Luminal narrowing is less than 50%. There is no evidence of hemodynamically significant stenosis of either internal carotid artery. Normal flow velocities are seen. The vertebral arteries demonstrate normal direction of flow. 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 No evidence of hemodynamically significant stenosis. Electronically Signed by Saurabh Marley MD 02/01/2019 09:37 A
--- NOTE | 2019-02-01 12:03 | IPNPDOC ---
Subjective Date Seen The patient was seen on 02/01/19. Subjective Chief Complaint/HPI Patient lying in bed as I entered the room. She had family at her bed side. Patient was very pleasant Constitutional: Denies: Chills, Fever Pulmonary: Denies: Dyspnea, Cough Cardiovascular: Denies: Chest Pain, Palpitations, Orthopnea, Edema Gastrointestinal: Denies: Nausea, Vomiting Neurological: Denies: Weakness, Confusion Psych: Reports: Mood Normal Objective Physical Examination General Exam: Positive: Alert, Cooperative; Negative: No Acute Distress Chest Exam: Positive: Clear to auscultation, Normal air movement Heart Exam: Positive: Rate Normal Abdomen Exam: Positive: Normal bowel sounds, Soft; Negative: Tenderness Skin Exam: Positive: Nl turgor and temperature Neuro Exam: Positive: Normal Speech, Strength at 5/5 X4 ext, Normal Tone, Sens ation Intact, Cranial Nerves 3-12 NL, Other (Patient alert and oreinted x 3 today. Some confusion per OT) Psych Exam: Positive: Mood NL; Negative: Memory Intact, Oriented x 3 Assessment /Plan Problems (1) Transient ischemic attack (TIA) Status: Acute Problem Text: favor moreso transient global confusion 02/01/19: Some mild confusion persists. Patient does live alone. PFS consulted. She was cleared by PT for home Neurology consulted. No trouble with wordfinding or enunciation at this point. Current exam suggests perhaps underlying dementia. 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 Carotid US pending. Currently on statin, beta- javier, aspirin. (2) HTN (hypertension) Status: Chronic Problem Text: Continue home metoprolol. (3) Anxiety and depression Status: Chronic Problem Text: Continue home Klonopin. (4) HLD (hyperlipidemia) Status: Chronic Problem Text: On statin. (5) History of coronary artery disease Permanent Comment: SD in 2001. Last Edited By: Kimberley Hernandez DO on Jan 31, 2019 23:47 Status: Chronic (6) COPD (chronic obstructive pulmonary disease) Status: Chronic Problem Text: Appears at baseline. Continue home inhalers. (7) Physical deconditioning Status: Chronic Response to Treatment: Stable Problem Text: 02/01 PT safe for dc home Plan/VTE VTE Prophylaxis Ordered?: Yes VS, I&O, 24H, Fishbone Vital Signs/I&O Vital Signs Date Time Temp Pulse Resp B/P (MAP) Pulse Ox O2 Delivery O2 Flow Rate FiO2 02/01/19 08:29 72 141/63 02/01/19 06:00 98.0 19 97 2.0 01/30/19 23:30 Room Air I&O- Last 24 Hours up to 6 AM 02/01/19 06:00 Intake Total 840 ml Balance 840 ml Laboratory Data 24H LABS Laboratory Tests 2 02/01/19 07:58: Immature Granulocyte % (Auto) 0.5, White Blood Count 8.2, Red Blood Count 3.05L, Hemoglobin 10.9L, Hematocrit 33.3L, Mean Corpuscular Volume 109.2H, Mean Corpuscular Hemoglobin 35.7H, Mean Corpuscular Hemoglobin Concent 32.7, Red Cell Distribution Width 13.8, Platelet Count 208, Neutrophils (%) (Auto) 63.5, Lymphocytes (%) (Auto) 24.2, Monocytes (%) (Auto) 7.7H, Eosinophils (%) (Auto) 3.5H, Basophils (%) (Auto) 0.6, Neutrophils # (Auto) 5.2, Lymphocytes # (Auto) 2.0, Monocytes # (Auto) 0.6, Eosinophils # (Auto) 0.3, Basophils # (Auto) 0.1, Nucleated Red Blood Cells % (auto) 0.2H, Anion Gap 4L, Glomerular Filtration Rate > 60.0, Blood Urea Nitrogen 16, Creatinine 0.87, Sodium Level 139, Potassium Level 3.8, Chloride Level 100, Carbon Dioxide Level 35H, Calcium Level 9.2, Magnesium Level 2.1 CBC/BMP Laboratory Tests 02/01/19 07:58 Red Blood Count 3.05 L, Mean Corpuscular Volume 109.2 H, Mean Corpuscular Hemoglobin 35.7 H, Mean Corpuscular Hemoglobin Concent 32.7, Red Cell Distribution Width 13.8, Neutrophils (%) (Auto) 63.5, Lymphocytes (%) (Auto) 24. 2, Monocytes (%) (Auto) 7.7 H, Eosinophils (%) (Auto) 3.5 H, Basophils (%) (Auto) 0.6, Neutrophils # (Auto) 5.2, Lymphocytes # (Auto) 2.0, Monocytes # (Auto) 0.6, Eosinophils # (Auto) 0.3, Basophils # (Auto) 0.1, Calcium Level 9.2 JUDAH CORONADO Feb 01, 2019 12:03 Chano Crockett M.D. Feb 01, 2019 17:18
[2019-02-01 14:00] VITALS: BP 126/60
--- NOTE | 2019-02-01 16:17 | NUR ---
Pt demonstrated mild-moderate cognitive impairment w/ deficits noted in immediate and delayed recall. Discussed results of eval w/ daughter, Daily by phone, who indicated that she believes this pt is at baseline, and she has not noticed any cognitive or language impairments. It was noted that the pt has a hearing loss and chooses not to wear her hearing aids. Daughter also indicated that pt will often pretend that she is hearing and will respond inappropriately rather than asking the communication partner to repeat themselves. This behavior may have impacted the results of the evaluation. Recommended to daughter that pt be supervised for medication management, cooking, and bill pay. The pt tells me she will not be driving. Will f/u for cognitive tx. Addendum: 02/01/[address] [facility] Amended: Links added.
[2019-02-01] MEDS: LATANOPROST 0.005% OPHTH SOLN 2.5 ML OU SCH (20:12)
[2019-02-01 22:00] VITALS: BP 141/64
[2019-02-02 06:00] VITALS: BP 127/87
[2019-02-02 06:47] LABS: BASO # 0.1 10^3/uL (0.0-0.2); BASO % 0.8 % (0.0-1.0); EOS # 0.3 10^3/uL (0.0-0.50); EOS % 3.7 % (0.0-3.0); HEMOGLOBIN 10.4 g/dl (12.0-15.5); MEAN CORPUSCULAR HEMOGLOBIN 34.6 pg (27.0-33.0); MEAN CORPUSCULAR HGB CONC 32.5 g/dl (32.0-36.5); MEAN CORPUSCULAR VOLUME 106.3 fl (80.0-96.0); MONO # 0.6 10^3/uL (0.0-0.8); MONO % 8.5 % (0.0-5.0); NEUTROPHILS # 4.3 10^3/uL (1.8-7.7); NEUTROPHILS % 59.6 % (36.0-66.0); PLATELET COUNT, AUTOMATED 173 10^3/uL (150-450); RED BLOOD COUNT 3.01 10^6/uL (4.00-5.40); WHITE BLOOD COUNT 7.3 10^3/uL (4.0-10.0)
[2019-02-02 07:13] LABS: BLOOD UREA NITROGEN 16 MG/DL (7-18); CALCIUM LEVEL 8.9 MG/DL (8.8-10.2); CARBON DIOXIDE LEVEL 32 MEQ/L (21-32); CHLORIDE LEVEL 103 MEQ/L (98-107); GLOMERULAR FILTRATION RATE > 60.0 (>32); GLUCOSE, FASTING 96 MG/DL (70-100); POTASSIUM SERUM 4.1 MEQ/L (3.5-5.1); SODIUM LEVEL 143 MEQ/L (136-145)
--- NOTE | 2019-02-02 07:22 | CR ---
DATE OF CONSULTATION: 02/01/2019 REFERRING PHYSICIAN: Dr. Jocy Bragg REASON FOR CONSULTATION: Slurred speech. HISTORY OF PRESENT ILLNESS: Kayla Taylor is an 88-year-old woman who was at her baseline state of health until January 30 when she was at home and could not get the right words out. It started around 12 noon. She called her granddaughter. Her granddaughter came to check up on her. Her daughter came back from work at around 5:30 p.m. and at that time her slurred speech was getting better. She described her difficulty as inability to come up with the right words. There was no weakness of arms or legs. She had a sinus headache that day. She denies any neck or back pain. She denies dysphagia, dysarthria, diplopia or urinary incontinence. She denies any falls or loss of consciousness. When I came to see her yesterday she was in a deep sleep as she had received a dose of clonazepam yesterday evening. She is now much more awake. She slept for 10-12 hours yesterday. She fell asleep around 4:30 p.m. yesterday and woke up this morning. PAST MEDICAL HISTORY: Breast cancer, history of melanoma, hypertension, right breast lumpectomy colectomy with colostomy which was reversed, multiple skin excisions for melanoma of left arm. SOCIAL HISTORY: She quit smoking in 1950s. She denies alcohol or illicit drugs. 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 She lives alone. FAMILY HISTORY: Noncontributory. HOME MEDICATIONS: - aspirin 325 mg by mouth daily - Fosamax 70 mg by mouth once a week - Lipitor 80 mg three times a week - metoprolol 50 mg by mouth daily - multivitamin 1 tablet by mouth daily - Paxil 20 mg by mouth daily - albuterol inhaler - Klonopin 0.5 mg by mouth three times a day as needed - nitroglycerin 0.4 mg as needed for chest pain times three ALLERGIES: - PENICILLIN - QUINOLONES - CEPHALOSPORINS PHYSICAL EXAMINATION: Temperature 98.7, pulse 66, respiratory rate 20, blood pressure 126/60, 99% saturation on 2 liters nasal cannula oxygen. Heart: Regular rate and rhythm. Lungs: Clear to auscultation. Abdomen: Soft, nontender, nondistended. No pedal edema. No musculoskeletal abnormalities. No rash. No signs of meningeal irritation. No dysmetria or ataxia. The patient is awake, alert, and oriented to place, person and time. Normal speech, comprehension and repetition. Extraocular muscles are intact. No facial weakness. Tongue and uvula are midline. 5/5 strength in all four extremities. Deep reflexes 2+ throughout. Normal sensation throughout. DIAGNOSTIC STUDIES: MRI scan of brain showed small vessel ischemic disease of brain without acute disease. MRA of brain showed severe left anterior cerebral artery stenosis. Carotid ultrasound showed less than 50% bilateral carotid artery stenosis. Her hemoglobin is 10.9 with a normal metabolic profile. ASSESSMENT: 1. Suspected transient ischemic attack. 2. 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 3. Small vessel ischemic disease of brain. PLAN: 1. Continue aspirin 325 mg by mouth daily and Lipitor 80 mg by mouth three times a week. 2. Physical and occupational therapy. 3. Follow with our office in 2-4 weeks after hospital discharge.
[2019-02-02] MEDS: SYMBICORT 80/4.5MCG INHALER 6GM INH SCH (07:52)
[2019-02-02 09:00] VITALS: BP 127/87
[2019-02-02] MEDS: SENOKOT S TAB PO SCH (09:00)
[2019-02-02] MEDS: BRIMONIDINE 0.15% OPHTH SOLN 5 ML OU SCH (09:00)
[2019-02-02] MEDS: VITAMIN D 1,000 INTERNATIONAL UNITS TABLET PO SCH (09:00)
[2019-02-02] MEDS: METOPROLOL SUCC (TopROL XL) 50MG **XL** TAB PO SCH (09:00)
[2019-02-02] MEDS ORDERED: ASPIRIN 325 MG TAB PO SCH (09:00)
[2019-02-02] MEDS: ENOXAPARIN 40 MG/0.4 ML SYRINGE (J1650) SC SCH (09:00)
[2019-02-02] MEDS: OCUVITE 1 TAB PO SCH (09:00)
[2019-02-02 14:00] VITALS: BP 156/88
--- NOTE | 2019-02-02 15:26 | NUR ---
Daughter, Daily, indicated that difficulties w/ cognitive evaluation yesterday were likely a result of hearing impairment & pt guessing to complete messages that she did not entirely hear. Per RN, other family has indicated that pt is cognitively at baseline. Family has been educated that pt should receive assistance for med management, meal preparation, and bill pay. Please f/u w/ SENIOR INSPECTOR for cognitive tx in outpatient setting if any new changes in mentation are noted. D/C'd from speech therapy. Addendum: 02/02/[address] [facility] Amended: Links added.
--- NOTE | 2019-02-02 17:10 | DS.PDOC ---
Discharge Summary General Date of Admission Jan 30, 2019 at 19:25 Date of Discharge 02/02/2019 Primary Care Physician: Umberto Knott M.D. Attending Physician: Max Chapman MD Specialist/Consultants Involve: FRANCOIS ALONSO MD Discharge Summary PROCEDURES PERFORMED DURING STAY: [None]. ADMITTING/DISCHARGE DIAGNOSES: 1. Global transient confusion 2. Breast cancer 3. History of melanoma (multiple episodes) 4. Hypertension 5. Coronary artery disease 6. Depression 7. Anxiety 8. MS (2001) 9. Cataracts 10. COPD 11. Hyperlipidemia COMPLICATIONS/CHIEF COMPLAINT: Suspected TIA HISTORY OF PRESENT ILLNESS: Patient presented to the emergency department forward finding difficulties and possible memory lapses. While speaking with her daughter earlier in the day, she noticed that she was taking a longer time to respond and was concerned she might be having a stroke. She denied any other applicable symptoms at that time. A stroke workup was initiated at the only pertinent finding being severe stenosis of her left anterior cerebral artery. Neurology was consulted and she was subsequently admitted to the hospital for evaluation. HOSPITAL COURSE: Initial lab work was negative for any acute findings. Subsequent measuring studies demonstrated less than 50% stenosis of her internal carotid arteries and no acute intracranial bleed. Neurology was consulted and suspected she may have had a transient ischemic attack, they encourage continued aspirin and Lipitor use with follow-up to their office. On hospital day 1 she was found to be alert to person but not to place or time and it was thought that she may have some degree of dementia. Speech therapy did evaluate her for same reason and agreed that there may be some degree of dementia present. However per her family who is around her often, they felt that her cognitive abilities were currently at baseline and that she may have had difficulties with understanding providers due to hearing impairment and trying to guess what they were saying to her. On speaking with her daughter on the last day of her hospital stay, her family is convinced that some acute change had happened necessitating the admission, but remained adamant that she was now at baseline. I also did not want her to be placed in any sort of assisted living facility and wanted her to come back home. She was cleared by physical therapy and at that point was medically stable for discharge. DISCHARGE MEDICATIONS: Please see below. ALLERGIES: Please see below. PHYSICAL EXAMINATION ON DISCHARGE: VITAL SIGNS: Please see below. GENERAL: Alert, no acute distress HEENT: Cephalic, atraumatic. EOMI. No pharyngeal erythema. CARDIOVASCULAR EXAMINATION: RRR. Normal S1 and S2. No murmurs, gallops, rubs. RESPIRATORY EXAMINATION: CTAB with full breath sounds bilaterally. No wheezes, crackles, rhonchi. ABDOMINAL EXAMINATION: Soft, nontender, non-distended. Bowel sounds present. EXTREMITIES: Lower extremity edema. SKIN: Normal turgor and temperature. NEUROLOGICAL EXAMINATION: Normal speech. Strength 5 out of 5 in upper extremity is enlarged 20s. Sensation intact. Cranial nerves III through XII normal. PSYCHIATRIC EXAMINATION: Normal mood LABORATORY DATA: Please see below. IMAGIN01/30/[address]: Atrophy with minimal periventricular small vessel ischemic change. No acute hemorrhage. Vascular calcifications in carotid siphons. 01/30/19 chest x-ray: Mild cardiomegaly. No acute infiltrate. 01/30/19 MRI brain without contrast: Mild chronic microvascular disease. No acute lesion or injury. 01/30/19 MRA brain without contrast Severe stenosis at the origin of the A2 segment of the left anterior cerebral artery. 02/01/19 vascular ultrasound: Bilateral luminal narrowing of the internal carotid arteries less than 50%. No evidence of hemodynamically significant stenosis. PROGNOSIS: Fair ACTIVITY: [As tolerated]. DIET: As tolerated DISCHARGE PLAN: Home with services DISPOSITION: Home Health Service. DISCHARGE INSTRUCTIONS: 1. Please follow-up with Dr. Knott in the next week 2. Please follow-up with neurology office in the next 2-4 weeks. ITEMS TO FOLLOWUP ON ON OUTPATIENT: 1. Please continue taking full dose aspirin and Lipitor as per neurology instructions DISCHARGE CONDITION: [Stable]. TIME SPENT ON DISCHARGE: Greater than 30 minutes. Vital Signs/I&Os Vital Signs Date Time Temp Pulse Resp B/P (MAP) Pulse Ox O2 Delivery O2 Flow Rate FiO2 02/02/19 14:00 96.6 80 18 156/88 (110) 98 2.0 01/30/19 23:30 Room Air I&O- Last 24 Hours up to 6 AM 02/02/19 06:00 Intake Total 1560 ml Output Total 1300 ml Balance 260 ml Laboratory Data Labs 24H Laboratory Tests 2 02/02/19 06:22: Immature Granulocyte % (Auto) 0.4, White Blood Count 7.3, Red Blood Count 3.01L, Hemoglobin 10.4L, Hematocrit 32.0L, Mean Corpuscular Volume 106.3H, Mean Corpuscular Hemoglobin 34.6H, Mean Corpuscular Hemoglobin Concent 32.5, Red Cell Distribution Width 13.2, Platelet Count 173, Neutrophils (%) (Auto) 59.6, Lymphocytes (%) (Auto) 27.0, Monocytes (%) (Auto) 8.5H, Eosinophils (%) (Auto) 3.7H, Basophils (%) (Auto) 0.8, Neutrophils # (Auto) 4.3, Lymphocytes # (Auto) 2.0, Monocytes # (Auto) 0.6, Eosinophils # (Auto) 0.3, Basophils # (Auto) 0.1, Nucleated Red Blood Cells % (auto) 0.0, Anion Gap 8, Glomerular Filtration Rate > 60.0, Blood Urea Nitrogen 16, Creatinine 0.80, Sodium Level 143, Potassium Level 4.1, Chloride Level 103, Carbon Dioxide Level 32, Calcium Level 8.9, Magnesium Level 2.0 CBC/BMP Laboratory Tests 02/02/19 06:22 Red Blood Count 3.01 L, Mean Corpuscular Volume 106.3 H, Mean Corpuscular Hemoglobin 34.6 H, Mean Corpuscular Hemoglobin Concent 32.5, Red Cell Distribution Width 13.2, Neutrophils (%) (Auto) 59.6, Lymphocytes (%) (Auto) 27.0, Monocytes (%) (Auto) 8.5 H, Eosinophils (%) (Auto) 3.7 H, Basophils (%) (Auto) 0.8, Neutrophils # (Auto) 4.3, Lymphocytes # (Auto) 2.0, Monocytes # (Auto) 0.6, Eosinophils # (Auto) 0.3, Basophils # (Auto) 0.1, Calcium Level 8.9 Discharge Medications Scheduled Alendronate Sodium (Fosamax) 70 Mg Tab, 70 MG PO 1XWK, (Reported) TUESDAY MORNINGS Aspirin (Aspirin) 325 Mg Tab, 325 MG PO DAILY, (Reported) Atorvastatin Calcium (Atorvastatin Calcium) 80 Mg Tab, 80 MG PO 3XW, (Reported) TUESDAY, TUESDAY AND TUESDAY MORNINGS Brimonidine Tartrate 0.15% (Alphagan P) 0.15 % Emely, 1 DROP OU BID, (Reported) Budesonide/Formoterol (Symbicort 80-4.5 Mcg/Act) 60 Puff/Inhaler Aers, 2 PUFF INH BID, (Reported) Calcium/Vitamin D (Calcium 500+D 500-400 mg-Unit) 1 Tab Tab, 1 TAB PO BID, (Reported) Cholecalciferol (Vitamin D) 1,000 Unit Tab, 1,000 UNIT PO DAILY, (Reported) Latanoprost (Xalatan) 0.005 % Emely, 1 DROP OU QHS, (Reported) Metoprolol Succinate (Metoprolol Succinate ER) 50 Mg Tab, 50 MG PO DAILY, (Reported) Multivitamin Areds (Preservision Areds) 1 Cap Cap, 1 CAP PO DAILY, (Reported) Paroxetine Hydrochloride (Paroxetine) 20 Mg Tab, 20 MG PO DAILY, (Reported) Scheduled PRN Albuterol Sulfate (Albuterol Sulfate) 2.5 Mg/3 Ml Nebu, 2.5 MG INH QID PRN for SHORTNESS OF BREATH, (Reported) Albuterol Sulfate (Ventolin Hfa) 108 Mcg/Act Aer, 2 PUFFS INH Q4H PRN for SHORTNESS OF BREATH, (Reported) Clonazepam (Clonazepam) 0.5 Mg Tab, 0.5 MG PO TID PRN for ANXIETY, (Reported) Nitroglycerin (Nitrostat) 0.4 Mg Subl, 0.4 MG SL NITRO PRN for CHEST PAIN, ( Reported) Allergies Coded Allergies: MS - Cephalosporins (Verified Allergy, Unknown, 01/30/19) MS - Penicillins (Verified Allergy, Unknown, 01/30/19) MS - Penicillins Cross Reactors (Verified Allergy, Unknown, 01/30/19) MS - Quinolones (Verified Allergy, Unknown, 01/30/19) GME ATTESTATION ATTENDING NOTE Family Medicine Attending Note: I was present on site to supervise YOLANDA Rodriguez. We discussed the history and exam. I confirmed the gong elements during my [id number] encounter with the patient. We conferred on the assessment and plan; I agree with the note as documented. (major assembler) FELISHA OROZCO DO Feb 02, 2019 17:10 Max Chapman MD Feb 08, 2019 09:04
== END 2019-02-02 16:00 | disposition home health service (06) ==
LOC: M ED 19:24 → EDBD 19:24 → M ED INP 19:25 → M MS5PR 01-31 01:11
PROVIDERS: ADMIT Internal Medicine; ATTEND Hospitalist
DX: R40.4 Transient alteration of awareness (principal); Z85.3 Personal history of malignant neoplasm of breast; Z85.820 Personal history of malignant melanoma of skin; I10 Essential (primary) hypertension; I25.10 Atherosclerotic heart disease of native coronary artery without angina pectoris; I25.2 Old myocardial infarction; J44.9 Chronic obstructive pulmonary disease, unspecified; E78.5 Hyperlipidemia, unspecified; H25.9 Unspecified age-related cataract; F32.9 Major depressive disorder, single episode, unspecified; F41.9 Anxiety disorder, unspecified; I65.23 Occlusion and stenosis of bilateral carotid arteries; Z79.82 Long term (current) use of aspirin; Z79.899 Other long term (current) drug therapy; Z88.0 Allergy status to penicillin; Z88.8 Allergy status to other drugs, medicaments and biological substances
CPT/HCPCS: 36415; 70450; 70544; 70551; 71045; 80048; 80061; 80076; 81001; 82550; 82553; 83036; 83735; 84443; 84484; 85025; 85610; 85730; 93005; 93041; 93306; 93880; 94640; 94760; 96125; 96372; 96374; 97116; 97161; 97165; 99285; G0378; G0515; J1650; J2405

== ENCOUNTER → 2019-08-01 | Outpatient (CLI) | payer MEDICARE, OTHER ==
[~2019-08-01] MED LIST changes: -/ALBU4TAB GT; -ACET50TA PO; +ALBU1TAB2 GT; +ALPH0.156 OP; +ALPH0.156 OU; +ASPI-1 PO; +ASPI-527 PO; -ASPI325T PO; +CALCTAB41 PO; +MAPA500T17 PO; +METO-1 PO; +MM S100C PO; +PARO20TA4 PO; +PRESCAP PO; -TOPR25TA PO; +VENTAER INH; +XALA0.007 OP; +XALA0.007 OU
--- NOTE | 2019-08-02 11:05 | RADONC ---
RADIATION ONCOLOGY FOLLOWUP NOTE DATE: 08/01/2019 CHART #: [id number] DIAGNOSIS: Right breast cancer. STAGE: I A, [id number]. ECOG PERFORMANCE STATUS: 1. FOLLOWUP NOTE: Ms. 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 The patient presents today reporting that generally she is doing well for her age. She did have a stroke recently. She is short of breath with oxygen dependency. She is having no breast or bone pain. REVIEW OF SYSTEMS: The patient's review of systems is positive for the physical limitations secondary to her shortness of breath and need for oxygen as well as old age. Review of systems is otherwise noncontributory. Denies nausea, vomiting, fevers, chills, night sweats, diplopia, headaches, anxiety or depression, anorexia, weight loss, visual disturbances, chest pain, urinary or bowel difficulties, bone pain, or neurological problems. PHYSICAL EXAMINATION The patient is an elderly white female on nasal oxygen and no acute distress. HEENT exam is normocephalic, atraumatic. Extraocular movements are intact. There is no palpable cervical, supraclavicular, infraclavicular, axillary, or inguinal lymphadenopathy present. Lungs are clear to auscultation and percussion. Heart has a regular rate and rhythm. Abdomen is benign with no hepatosplenomegaly, masses, or tenderness. Breast examination reveals no masses or discharge bilaterally. Skeletal examination reveals no tenderness to pressure or percussion of the bony skeleton. Extremities reveal no clubbing, cyanosis, or edema. Neurologic exam is grossly intact, as is the remainder of the physical examination. ASSESSMENT: The patient is clinically AMA at this time. She is being discharged from my followup except on a p.r.n. basis. She will continue her close followup with Dr. Knott.
== END ==
LOC: M ONCR 09:16
PROVIDERS: ATTEND Radiology Radiation Oncology
DX: Z85.3 Personal history of malignant neoplasm of breast (principal); Z92.3 Personal history of irradiation

== ENCOUNTER → 2019-08-20 | Outpatient (CLI) | payer MEDICARE, OTHER ==
--- NOTE | 2019-08-20 12:10 | REPMRS ---
Patient History The patient states she had a clinical breast exam in 07/2019. Family history of breast cancer at age 50 or over in maternal aunt. Benign ultrasound-guided core biopsy of the right breast, August 06, 2016. Benign ultrasound-guided core biopsy of the right breast, August 22, 2015. Malignant localization of breast nodule of the right breast, August 19, 2010. Stereotatic Breast Biopsy of the right breast, August 03, 2010. Radiation therapy of the right breast. 3D TOMOSYNTHESIS WAS PERFORMED. Digital Woman Screen Mammo: August 20, 2019 - Exam #: [id number] Bilateral CC and MLO view(s) were taken. Technologist: Claire Nino, Technologist Prior study comparison: July 24, 2018, bilateral digital woman screen mammo performed at [facility]. August 01, 2017, digital woman screen mammo performed at [facility]. FINDINGS: The breast tissue is heterogeneously dense. This may lower the sensitivity of mammography. There is no evidence of cancer on this mammogram. There are stable post treatment changes on the right. Large coarse benign appearing calcifications are present. No significant changes when compared with prior studies. Assessment: BI-RADS/ACR category 2 mammogram. Benign Findings. Recommendation Routine screening mammogram of both breasts in 1 year (for women over age 40). This mammogram was interpreted with the aid of an FDA-approved computer-aided dectection system. Electronically Signed By: Saurabh Marlye MD 08/20/19 [id number]
== END ==
LOC: M WHC 11:15
PROVIDERS: ATTEND Radiology Radiation Oncology
DX: Z12.31 Encounter for screening mammogram for malignant neoplasm of breast (principal)

== ENCOUNTER 2019-09-22 05:50 | Emergency (ER) | payer MEDICARE, OTHER ==
[2019-09-22] MEDS ORDERED: ALPH0.156 OP (06:34)
[2019-09-22] MEDS ORDERED: ATOR80TA59 PO (06:34)
[2019-09-22 06:41] LABS: BASO % 0.7 % (0.0-1.0); EOS # 0.3 10^3/uL (0.0-0.5); EOS % 4.9 % (0.0-3.0); HEMATOCRIT 33.5 % (36.0-47.0); HEMOGLOBIN 10.9 g/dl (12.0-15.5); LYMPH # 1.4 10^3/uL (1.5-5.0); LYMPH % 23.7 % (24.0-44.0); MEAN CORPUSCULAR HEMOGLOBIN 34.7 pg (27.0-33.0); MEAN CORPUSCULAR HGB CONC 32.5 g/dl (32.0-36.5); MEAN CORPUSCULAR VOLUME 106.7 fl (80.0-96.0); MONO # 0.5 10^3/uL (0.0-0.8); MONO % 8.7 % (0.0-5.0); NEUTROPHILS # 3.7 10^3/uL (1.5-8.5); NEUTROPHILS % 61.5 % (36.0-66.0); PLATELET COUNT, AUTOMATED 153 10^3/uL (150-450); RED BLOOD COUNT 3.14 10^6/uL (4.00-5.40); WHITE BLOOD COUNT 6.1 10^3/uL (4.0-10.0)
[2019-09-22] MEDS ORDERED: MECL-68 PO (06:42)
[2019-09-22] MEDS ORDERED: DOCU100C16 PO (06:44)
--- NOTE | 2019-09-22 06:48 | REPVR ---
PROCEDURE INFORMATION: Exam: CT Head Without Contrast Exam date and time: 09/22/2019 6:17 AM Clinical history: 89 years old, female; Altered mental status/memory loss; Confusion or disorientation; Additional info: AMS TECHNIQUE: Imaging protocol: Computed tomography of the head without contrast. Radiation optimization: All CT scans at this facility use at least one of these dose optimization techniques: automated exposure control; mA and/or kV adjustment per patient size (includes targeted exams where dose is matched to clinical indication); or iterative reconstruction. COMPARISON: CT Head without contrast 2019-01-30 19:51 FINDINGS: Brain: Diffuse mild cerebral age related volume loss. Mild patchy low attenuation in the white matter compatible with mild chronic small vessel ischemic disease. No midline shift, mass, fluid collection, or evidence of hemorrhage. Ventricles: Ventricular enlargement proportional to volume loss. Bones/joints: Unremarkable. No acute fracture. Sinuses: Visualized sinuses are unremarkable. No fluid levels. Mastoid air cells: Visualized mastoid air cells are well aerated. Orbits: Evidence of previous ocular surgery with intraocular lens implants. Soft tissues: Unremarkable. IMPRESSION: Mild involutional changes, no acute intracranial abnormality. Electronically signed by: Junior Sanchez On 09/22/2019 06:47:37 AM
[2019-09-22 07:12] LABS: ALBUMIN 3.6 GM/DL (3.2-5.2); ALT/SGPT 22 U/L (12-78); BILIRUBIN,DIRECT 0.2 MG/DL (0.0-0.2); BILIRUBIN,TOTAL 0.9 MG/DL (0.2-1.0); BLOOD UREA NITROGEN 12 MG/DL (7-18); CALCIUM LEVEL 9.6 MG/DL (8.8-10.2); CARBON DIOXIDE LEVEL 37 MEQ/L (21-32); CHLORIDE LEVEL 101 MEQ/L (98-107); CK-MB VALUE MASS < 1.0 NG/ML (<3.6); CPK CREATINE PHOSPHOKINASE 36 U/L (26-192); CREATININE FOR GFR 0.73 MG/DL (0.55-1.30); GLOMERULAR FILTRATION RATE > 60.0 (>32); GLUCOSE, FASTING 106 MG/DL (70-100); MB/CK RELATIVE INDEX 2.78 (< OR =4); POTASSIUM SERUM 3.8 MEQ/L (3.5-5.1); SODIUM LEVEL 142 MEQ/L (136-145); TOTAL PROTEIN 6.7 GM/DL (6.4-8.2); TROPONIN I < 0.02 NG/ML (< 0.10)
[2019-09-22 07:53] LABS: MAGNESIUM LEVEL 1.6 MG/DL (1.8-2.4)
[2019-09-22] MEDS ORDERED: BACT800T5 PO (07:59)
[2019-09-22] MEDS ORDERED: BACTRIM 160MG/800MG DS TAB PO ONE (08:00)
--- NOTE | 2019-09-22 08:01 | ECGEPIP ---
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
[2019-09-22 08:35] VITALS: BP 147/64
== END 2019-09-22 08:53 | disposition home or self-care (01) ==
LOC: M ED 05:50
DX: E83.42 Hypomagnesemia (principal); H66.91 Otitis media, unspecified, right ear; D64.9 Anemia, unspecified; I10 Essential (primary) hypertension; R41.0 Disorientation, unspecified; R94.6 Abnormal results of thyroid function studies; N39.0 Urinary tract infection, site not specified; Z79.51 Long term (current) use of inhaled steroids; Z79.82 Long term (current) use of aspirin

== ENCOUNTER → 2020-03-05 | Outpatient (REF) | payer MEDICARE, OTHER ==
[~2020-03-05] MED LIST changes: +ALTA1CAP PO; +ASPI81TA26 PO; +BACT800T5 PO; +CLON0.5T2 PO; -CLON0.5T8 PO; +CLOP75TA2 PO; +COLA100C5 PO; +DOCU100C16 PO; +MECL1TAB31 PO
[2020-03-05 16:17] LABS: ALBUMIN 3.8 GM/DL (3.2-5.2); ALT/SGPT 22 U/L (12-78); BILIRUBIN,TOTAL 0.9 MG/DL (0.2-1.0); BLOOD UREA NITROGEN 12 MG/DL (7-18); CALCIUM LEVEL 9.2 MG/DL (8.8-10.2); CARBON DIOXIDE LEVEL 35 MEQ/L (21-32); CHLORIDE LEVEL 100 MEQ/L (98-107); CHOLESTEROL LEVEL 150 MG/DL (<200); CHOLESTEROL RISK RATIO 2.238 (<5); GLOMERULAR FILTRATION RATE > 60.0 (>32); GLUCOSE, FASTING 87 MG/DL (70-100); HDL CHOLESTEROL 67 MG/DL (>40); LDL CHOLESTEROL 57 MG/DL (<100); NON-HDL-C 83 MG/DL; SODIUM LEVEL 140 MEQ/L (136-145); TOTAL PROTEIN 6.9 GM/DL (6.4-8.2); TRIGLYCERIDES LEVEL 131 MG/DL (<150)
[2020-03-05 16:23] LABS: TOTAL 25(OH) VITAMIN D 39.7 NG/ML (30.0-100.0)
== END ==
LOC: M SFHCCLAY 11:05
PROVIDERS: ATTEND Family Medicine
DX: I10 Essential (primary) hypertension (principal); I25.10 Atherosclerotic heart disease of native coronary artery without angina pectoris; E55.9 Vitamin D deficiency, unspecified
CPT/HCPCS: 36415; 80053; 80061; 82306; 83735; G0463

== ENCOUNTER 2020-03-25 10:57 | Inpatient (IN) | payer MEDICARE, OTHER ==
[~2020-03-25] VITALS: Ht 160 cm; Wt 62.0 kg
[2020-03-25] VITALS (9 sets, daily range): BP systolic 115–190; BP diastolic 55–80
[~2020-03-25 10:57] MED LIST changes: -ALTA1CAP PO; -ASPI81TA26 PO; -CLOP75TA2 PO; -COLA100C5 PO
[2020-03-25 11:40] LABS: BASO # 0.1 10^3/uL (0.0-0.2); BASO % 0.6 % (0.0-1.0); EOS # 0.1 10^3/uL (0.0-0.5); EOS % 0.7 % (0.0-3.0); HEMATOCRIT 23.6 % (36.0-47.0); HEMOGLOBIN 7.6 g/dl (12.0-15.5); LYMPH # 1.8 10^3/uL (1.5-5.0); LYMPH % 13.1 % (24.0-44.0); MEAN CORPUSCULAR HEMOGLOBIN 35.2 pg (27.0-33.0); MEAN CORPUSCULAR HGB CONC 32.2 g/dl (32.0-36.5); MEAN CORPUSCULAR VOLUME 109.3 fl (80.0-96.0); MONO # 0.7 10^3/uL (0.0-0.8); MONO % 5.1 % (0.0-5.0); NEUTROPHILS # 10.8 10^3/uL (1.5-8.5); NEUTROPHILS % 80.1 % (36.0-66.0); PLATELET COUNT, AUTOMATED 229 10^3/uL (150-450); RED BLOOD COUNT 2.16 10^6/uL (4.00-5.40); WHITE BLOOD COUNT 13.5 10^3/uL (4.0-10.0)
[2020-03-25] MEDS ORDERED: NS 1,000 ML IV ONE (11:45)
[2020-03-25 12:12] LABS: ALBUMIN 2.7 GM/DL (3.2-5.2); ALT/SGPT 20 U/L (12-78); BILIRUBIN,TOTAL 0.9 MG/DL (0.2-1.0); BLOOD UREA NITROGEN 25 MG/DL (7-18); CALCIUM LEVEL 8.9 MG/DL (8.8-10.2); CARBON DIOXIDE LEVEL 33 MEQ/L (21-32); CHLORIDE LEVEL 106 MEQ/L (98-107); CK-MB VALUE MASS < 1.0 NG/ML (<3.6); CPK CREATINE PHOSPHOKINASE 31 U/L (26-192); CREATININE FOR GFR 0.89 MG/DL (0.55-1.30); GLOMERULAR FILTRATION RATE > 60.0 (>32); GLUCOSE, FASTING 198 MG/DL (70-100); MAGNESIUM LEVEL 1.8 MG/DL (1.8-2.4); MB/CK RELATIVE INDEX 3.23 (< OR =4); POTASSIUM SERUM 4.7 MEQ/L (3.5-5.1); SODIUM LEVEL 144 MEQ/L (136-145); TROPONIN I < 0.02 NG/ML (< 0.10)
--- NOTE | 2020-03-25 12:47 | REP ---
REASON FOR EXAM: Dyspnea. COMPARISON: 01/30/2019. FINDINGS: The technique utilized in obtaining the radiograph has magnified the cardiac silhouette and accentuated the interstitial markings. The superior mediastinal structures are midline. The cardiac silhouette is unremarkable in size, shape, and position. The diaphragmatic surfaces of the lungs are regular, and the costophrenic angles are clear. The pulmonary de jesus are clear. The imaged osseous structures are intact. IMPRESSION: There is no acute cardiopulmonary disease. No significant change from the prior exam. Electronically Signed by Sean Vilchis DO 03/25/2020 02:13 P
[2020-03-25] MEDS ORDERED: VITAD1000T PO (13:05)
[2020-03-25] MEDS ORDERED: CLOP75TA2 PO (13:05)
[2020-03-25] MEDS ORDERED: ASPI81TA26 PO (13:05)
[2020-03-25] MEDS ORDERED: COLA100C5 PO (13:06)
[2020-03-25] MEDS: NS 1,000 ML IV SCH (13:49)
[2020-03-25] MEDS ORDERED: PANTOPRAZOLE 40MG VIAL (C9113 PER 1) IV SCH (14:00)
[2020-03-25] MEDS ORDERED: ALBUTEROL SULFATE 2.5 MG/0.5 ML INH NEB SOLN INH PRN (14:00)
[2020-03-25] MEDS ORDERED: PANTOPRAZOLE 40MG VIAL (C9113 PER 1) IV ONE (15:00)
[2020-03-25 15:10] LABS: INR 1.24; PROTHROMBIN TIME 15.3 SECONDS (11.8-14.0)
--- NOTE | 2020-03-25 15:53 | HPEPDOC ---
[facility] Medical History & Physical Date of Admission March 25, 2020 Date of Service: March 25, 2020 Primary Care Physician: Umberto Knott M.D. Attending Physician: BRADLEY POPE MD History and Physical CHIEF COMPLAINT: Hematemesis HISTORY OF PRESENT ILLNESS: Kayla sanders an 81-year-old female presented to the emergency department after 2 episodes of hematemesis this morning. She states she woke up around 3 AM the bathroom. She states she was feeling very dizzy while walking to and from the bathroom but did not fall. When she laid back down in bed, she started to feel very nauseous. She states over the next couple hours. She threw up twice. When her daughter stopped by to visit in the morning, the daughter noticed that the emesis was bloody. The daughter brought the patient to the emergency department to be further evaluated. The patient has no history of hematemesis or GI bleeding in the past. She has no history of liver disease. She has a history of a TIA in August 2019. At that time, she was started on 324 mg aspirin and followed up with neurology. In October 2019, her PCP started her on Plavix and lowered the aspirin dose to 81 mg, and she has been taking this daily since then. Since starting the Plavix, she has had no prior episodes of hematemesis or lightheadedness since starting the Plavix. PAST MEDICAL HISTORY: 1. 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 Breast cancer of the right breast, status post lumpectomy and radiation. 3. Coronary artery disease status post stenting 2004. 4. Hypertension. 5. COPD on chronic oxygen 2 L 6. TIA, most recently August 2019. 7. Depression/anxiety. 8. Cataracts PAST SURGICAL HISTORY: 1. Melanoma excision 2 2. Cardiac angioplasty and stenting 3. Colostomy for diverticulitis. 4. Reversal of colostomy. 5. Lumpectomy of the right breast 6. Laser eye surgery, cataract surgery SOCIAL HISTORY: Former smoker. Denies alcohol intake. Lives in a house alone. FAMILY HISTORY: Father had a history of CAD and aortic aneurysm. Son has diabetes. Sister has glaucoma. ALLERGIES: Please see below. REVIEW OF SYSTEMS: CONSTITUTIONAL: Denies fevers, chills, night sweats, fatigue, unexpected change in weight. HEENT: Denies change in vision, change in hearing. CARDIOVASCULAR: Endorses lightheadedness. Denies chest pain, palpitations, shortness of breath. RESPIRATORY: Denies dyspnea, cough, wheezing. GASTROINTESTINAL: Positive per HPI. Denies abdominal pain, diarrhea, constipation, blood in stool. GENITOURINARY: Denies dysuria, urinary frequency, urinary urgency. SKIN: Denies rash, lesions. MUSCULOSKELETAL: Denies new joint pain or muscle aches. NEUROLOGICAL: Denies headache, weakness. PSYCHIATRIC: Denies change in mood. HOME MEDICATIONS: Please see below. PHYSICAL EXAMINATION: GENERAL: Alert, comfortable, in no acute distress HEENT: Normocephalic, atraumatic, PERRLA, EOMI, sclera anicteric, moist mucous membranes NECK: Supple, trachea midline, no lymphadenopathy, no JVD CARDIOVASCULAR: Regular rate and rhythm, normal S1 and S2. No murmurs, rubs, or gallops RESPIRATORY: Clear to auscultation bilaterally with equal air entry bilaterally. No wheezing, rhonchi, or rales. ABDOMEN: Soft, nontender, nondistended, bowel sounds present. EXTREMITIES: No cyanosis or edema. Pulses 2+/4 in bilateral upper and lower extremities SKIN: No rash noted. NEUROLOGIC: Alert and oriented 3 to person, place and time. No focal deficits appreciated PSYCHIATRIC: Mood and affect appropriate LABORATORY DATA: See below. MICROBIOLOGY: Please see below. ASSESSMENT: 89-year-old female who presented with history of dizziness and hematemesis 2, admitted for likely upper GI bleed PLAN: 1. Acute anemia secondary to suspected upper GI bleed. Hg 7.6 on admission, 2 units PRBC ordered for transfusion. Monitor CBC every 6 hours and transfuse as indicated. We'll. NPO, on IV fluids for maintenance. Given 80 mg dose IV Protonix, continue 40 mg IV Protonix twice a day. Hold home Plavix and aspirin. GI consulted, appreciate their recommendations. Suspect she will need an upper endoscopy during this admission. 2. History of TIA. Hold home Plavix and aspirin in the setting of his acute GI bleed. 3. COPD with chronic hypoxic respiratory failure No evidence of acute exacerbation. Continue home inhalers. Continue home oxygen requirement 2 L nasal cannula. 4. Hypertension. Hold home metoprolol. 5. History of CAD. Restart home statin when no longer NPO 6. Depression/anxiety. Restart home SSRI when no longer NPO DVT prophylaxis: Teds and SCDs. GI prophylaxis: IV Protonix twice a day Disposition: Pending clinical improvement, upper endoscopy Attending attestation: I evaluated and examined the patient in person; I discussed the care with Resident in detail and agree with the plan above. Vital Signs Vital Signs Date Time Temp Pulse Resp B/P (MAP) Pulse Ox O2 Delivery O2 Flow Rate FiO2 03/25/20 13:43 72 18 135/60 (85) 100 Nasal Cannula 2.0 03/25/20 11:18 96.5 Laboratory Data Labs 24H Laboratory Tests 2 03/25/20 11:24: Immature Granulocyte % (Auto) 0.4, Neutrophils (%) (Auto) 80.1H, Lymphocytes (%) (Auto) 13.1L, Monocytes (%) (Auto) 5.1H, Eosinophils (%) (Auto) 0.7, Basophils (%) (Auto) 0.6, Neutrophils # (Auto) 10.8H, Lymphocytes # (Auto) 1.8, Monocytes # (Auto) 0.7, Eosinophils # (Auto) 0.1, Basophils # (Auto) 0.1, Nucleated Red Blood Cells % (auto) 0.4H, Prothrombin Time 15.3H, Prothromb Time International Ratio 1.24, Anion Gap 5L, Glomerular Filtration Rate > 60.0, Calcium Level 8.9, Magnesium Level 1.8, Total Bilirubin 0.9, Aspartate Amino Transf (AST/SGOT) 13, Alanine Aminotransferase (ALT/SGPT) 20, Alkaline Phosphatase 62, Total Creatine Kinase 31, Creatine Kinase MB < 1.0, Creatine Kinase MB Relative Index 3.23, Troponin I < 0.02, Total Protein 5.0L, Albumin 2.7L, Albumin/Globulin Ratio 1.17, Thyroid Stimulating Hormone (TSH) 3.050, Free Thyroxine 1.00 CBC/BMP Laboratory Tests 03/25/20 11:24 Home Medications Scheduled Aspirin (Aspirin EC) 81 Mg Tablet.dr, 81 MG PO QHS Atorvastatin Calcium (Atorvastatin Calcium) 80 Mg Tab, 80 MG PO 3XW TUESDAY, TUESDAY AND TUESDAY EVENINGS Brimonidine Tartrate (Alphagan P) 0.15 % Emely, 1 DROP OU BID Budesonide/Formoterol (Symbicort 80-4.5 Mcg Inhaler) 60 Puff/Inhaler Aers, 2 PUFF INH BID Calcium Carbonate/Vitamin D3 (Calcium 500-Vit D3 400 Tablet) 1 Tab Tab, 1 TAB PO QHS Cholecalciferol (Vitamin D3) (Vitamin D3) 1,000 Unit Tablet, 1,000 UNITS PO QHS Clopidogrel Bisulfate (Clopidogrel) 75 Mg Tablet, 75 MG PO QHS Latanoprost (Xalatan) 0.005 % Emely, 1 DROP OU QHS Metoprolol Succinate (Metoprolol Succinate) 50 Mg Tab, 50 MG PO QHS Paroxetine HCl (Paroxetine) 20 Mg Tab, 20 MG PO QHS Vit A/Vit C/Vit E/Zinc/Copper (Preservision Areds Softgel) 1 Cap Cap, 2 CAP PO QHS Scheduled PRN Albuterol Sulf (Albuterol Sulfate) 2.5 Mg/3 Ml Nebu, 2.5 MG INH QID PRN for SHORTNESS OF BREATH Albuterol Sulfate (Ventolin Hfa) 108 Mcg/Act Aer, 2 PUFFS INH Q4H PRN for SHORTNESS OF BREATH Docusate Sodium (Colace) 100 Mg Capsule, 100 MG PO BID PRN for CONSTIPATION Nitroglycerin (Nitrostat) 0.4 Mg Subl, 0.4 MG SL NITRO PRN for CHEST PAIN Allergies Coded Allergies: Cephalosporins (Verified Allergy, Unknown, Rash, 09/22/19) Penicillins (Verified Allergy, Unknown, Rash, 09/22/19) Quinolones (Verified Allergy, Unknown, Rash, 09/22/19) A-FIB/CHADSVASC A-FIB History Current/History of A-Fib/PAF?: No BASIM MATHUR D.O. March 25, 2020 15:53 BRADLEY POPE MD March 30, 2020 19:15
[2020-03-25] MEDS ORDERED: DEXTROSE 50% 50 ML SYRINGE IV PRN (16:00)
[2020-03-25] MEDS ORDERED: GLUCOSE 4GM CHEW TABLET PO PRN (16:00)
[2020-03-25] MEDS ORDERED: SLF 3 ML SYR IV PRN (16:00)
[2020-03-25] MEDS ORDERED: GLUCAGON INJ 1MG VIAL SC PRN (16:00)
[2020-03-25] MEDS: HumaLOG INSULIN (NovoLOG) PER UNIT SC SCH (18:00)
--- NOTE | 2020-03-25 18:36 | CR.PDOC ---
General Date of Consultation: March 25, 2020 Referring Provider: BRADLEY POPE MD Attending Physician: JUANCARLOS CORDERO MD Consultation Primary physician/ hospitalist: -Dr. Pope Reason for consult: -Hematemesis and drop in hemoglobin and hematocrit. HPI: 89-year-old female patient with HTN, COPD on home oxygen (2L), CAD s/p stent placement in 2004, TIA (most recently in August 2019, currently on aspirin 81 and Plavix), h/po melanoma of left hand s/p excision in the past, was admitted to [facility] for hematemesis and drop in hemoglobin. GI was consulted for the same. Patient reports having 2 episodes of vomiting of moderate amount of bright red blood, which followed having an episode of dizziness. Currently, patient denies any active GI symptoms. Patient denies any loss of consciousness. Patient denies any prior similar episodes. Patient also denies use of OTC pain medications. Pertinent negative GI symptoms: Patient denies fever, sick contacts, recent travel, nausea, diarrhea, abdominal pain, loss of appetite, early satiety or unintentional weight loss. No history of melena or hematochezia. Patient reports regular bowel movements. Review of Systems: GI: as stated above CVS: No chest pain, No palpitations, No leg swelling. RS: No Shortness of breath, No Wheezing, no cough MASSAGE OPERATOR: No dizziness, No motor weakness, No sensory problems Hematology: No bruising, No gum bleeding, Musculoskeletal: No joint pain, ambulating well. Skin: No rash : No hematuria, No burning sensation of the urine ENT: No ear discharge/ pain, No dysphagia. Eyes: No photophobia. Jaundice Home medications: reviewed. Antithrombotic agents: -Aspirin and Plavix. Medical h/o: As above. Surgical h/o: History of segmental colectomy for diverticulitis complication, with prior colostomy and subsequently reversal of colostomy. Social h/o: Alcohol: -Denies, smoking: Former smoker, IVDA/ drugs:. Denies. Family h/o of GI cancers - None Prior Endoscopies: Reports having colonoscopy/ flexible sigmoidoscopy at that time of diverticulitis complication many years ago. Prior GI evaluations: -None in [facility] Exam: Vitals: reviewed General: Alert and oriented x 3, not in distress HEENT: NO pallor, no icterus. Normal oropharynx, NO cervical lymph nodes. Chest: symmetric with bilateral clear air entry, CVS: S1, S2 heard, normal, no murmurs . Abdomen: non-distended, prior surgical scars -- midline laparotomy scar and left lower quadrant colostomy scar, soft, minimal tenderness in the upper abdomen on deep palpation, but no rigidity or guarding. No palpable masses, normal bowel sounds heard. Rectal exam: Patient refused Extremities: no pedal edema, pulses palpable. MASSAGE OPERATOR: no focal motor or sensory deficits. Moves all extremities Skin: no rash. Labs: reviewed. Imaging: reviewed. Chest x-ray -- no acute cardiopulmonary disease. Impression: - 89-year-old female patient with Acute onset hematemesis with drop in hemoglobin from baseline, no further episodes on the floor, no melena, in a patient on aspirin and Plavix (last dose yesterday) -- DDx-- likely PUD vs AVM vs Less likely malignancy. Recommendations: - Patient educated about the test results, possible differential diagnoses and All questions answered. - Give IV Protonix 40 MG twice daily.. - Monitor hemoglobin and hematocrit, and transfuse as needed to keep hemoglobin around 8. Monitor for fluid overload status closely. - Patient is recommended EGD for further evaluation. She wanted to discuss with her family before making that decision. Will schedule for EGD after adequate resuscitation and if patient agrees tomorrow. - The procedure, indications, risks (bleeding, perforation, infection, hypotension, respiratory depression, allergy, need for endotracheal intubation, surgery, colostomy, cardiac arrest, even ), benefits, limitations (e.g., missing a lesion), and all other alternatives (including no intervention) were explained to the patient who understood and agreed for the procedure. - Nothing by mouth after midnight. Plan of care discussed with patient and primary team. Patient verbalized understanding and agreed with the plan. Vital Signs/I&O Vital Signs Date Time Temp Pulse Resp B/P (MAP) Pulse Ox O2 Delivery O2 Flow Rate FiO2 03/25/20 17:49 98.5 71 20 166/70 96 Nasal Cannula 2.0 03/25/20 16:25 100 Laboratory Data Labs 24H Laboratory Tests 2 03/25/20 11:24: Immature Granulocyte % (Auto) 0.4, Neutrophils (%) (Auto) 80.1H, Lymphocytes (%) (Auto) 13.1L, Monocytes (%) (Auto) 5.1H, Eosinophils (%) (Auto) 0.7, Basophils (%) (Auto) 0.6, Neutrophils # (Auto) 10.8H, Lymphocytes # (Auto) 1.8, Monocytes # (Auto) 0.7, Eosinophils # (Auto) 0.1, Basophils # (Auto) 0.1, Nucleated Red Blood Cells % (auto) 0.4H, Prothrombin Time 15.3H, Prothromb Time International Ratio 1.24, Anion Gap 5L, Glomerular Filtration Rate > 60.0, Calcium Level 8.9, Magnesium Level 1.8, Total Bilirubin 0.9, Aspartate Amino Transf (AST/SGOT) 13, Alanine Aminotransferase (ALT/SGPT) 20, Alkaline Phosphatase 62, Total Creatine Kinase 31, Creatine Kinase MB < 1.0, Creatine Kinase MB Relative Index 3.23, Troponin I < 0.02, Total Protein 5.0L, Albumin 2.7L, Albumin/Globulin Ratio 1.17, Thyroid Stimulating Hormone (TSH) 3.050, Free Thyroxine 1.00 03/25/20 18:02: Bedside Glucose (Misc Panel) 82L CBC/BMP Laboratory Tests 03/25/20 11:24 Allergies Coded Allergies: Cephalosporins (Verified Allergy, Unknown, Rash, 09/22/19) Penicillins (Verified Allergy, Unknown, Rash, 09/22/19) Quinolones (Verified Allergy, Unknown, Rash, 09/22/19) Home Medications Scheduled Aspirin (Aspirin EC) 81 Mg Tablet.dr, 81 MG PO QHS, (Reported) Atorvastatin Calcium (Atorvastatin Calcium) 80 Mg Tab, 80 MG PO 3XW, (Reported) TUESDAY, TUESDAY AND TUESDAY EVENINGS Brimonidine Tartrate (Alphagan P) 0.15 % Emely, 1 DROP OU BID, (Reported) Budesonide/Formoterol (Symbicort 80-4.5 Mcg Inhaler) 60 Puff/Inhaler Aers, 2 PUFF INH BID, (Reported) Calcium Carbonate/Vitamin D3 (Calcium 500-Vit D3 400 Tablet) 1 Tab Tab, 1 TAB PO QHS, (Reported) Cholecalciferol (Vitamin D3) (Vitamin D3) 1,000 Unit Tablet, 1,000 UNITS PO QHS, (Reported) Clopidogrel Bisulfate (Clopidogrel) 75 Mg Tablet, 75 MG PO QHS, (Reported) Latanoprost (Xalatan) 0.005 % Emely, 1 DROP OU QHS, (Reported) Metoprolol Succinate (Metoprolol Succinate) 50 Mg Tab, 50 MG PO QHS, (Reported) Paroxetine HCl (Paroxetine) 20 Mg Tab, 20 MG PO QHS, (Reported) Vit A/Vit C/Vit E/Zinc/Copper (Preservision Areds Softgel) 1 Cap Cap, 2 CAP PO QHS, (Reported) Scheduled PRN Albuterol Sulf (Albuterol Sulfate) 2.5 Mg/3 Ml Nebu, 2.5 MG INH QID PRN for SHORTNESS OF BREATH, (Reported) Albuterol Sulfate (Ventolin Hfa) 108 Mcg/Act Aer, 2 PUFFS INH Q4H PRN for SHORTNESS OF BREATH, (Reported) Docusate Sodium (Colace) 100 Mg Capsule, 100 MG PO BID PRN for CONSTIPATION, (Reported) Nitroglycerin (Nitrostat) 0.4 Mg Subl, 0.4 MG SL NITRO PRN for CHEST PAIN, (Reported) JUANCARLOS CORDERO MD March 25, 2020 18:36
[2020-03-25] MEDS: SYMBICORT 80/4.5MCG INHALER 6GM INH SCH (19:16)
[2020-03-25] MEDS: SLF 3 ML SYR IV SCH (20:29)
[2020-03-25] MEDS ORDERED: METOPROLOL SUCC (TopROL XL) 50MG **XL** TAB PO ONE (21:15)
[2020-03-25 22:12] LABS: HEMATOCRIT 28.4 % (36.0-47.0); HEMOGLOBIN 9.6 g/dl (12.0-15.5); MEAN CORPUSCULAR HEMOGLOBIN 33.1 pg (27.0-33.0); MEAN CORPUSCULAR HGB CONC 33.8 g/dl (32.0-36.5); MEAN CORPUSCULAR VOLUME 97.9 fl (80.0-96.0); PLATELET COUNT, AUTOMATED 159 10^3/uL (150-450); WHITE BLOOD COUNT 10.1 10^3/uL (4.0-10.0)
[2020-03-26] VITALS (9 sets, daily range): BP systolic 154–182; BP diastolic 70–97
[2020-03-26] MEDS: PANTOPRAZOLE 40MG VIAL (C9113 PER 1) IV SCH ×2 (01:22→14:49)
[2020-03-26 05:16] LABS: HEMATOCRIT 26.4 % (36.0-47.0); HEMOGLOBIN 8.9 g/dl (12.0-15.5); MEAN CORPUSCULAR HGB CONC 33.7 g/dl (32.0-36.5); MEAN CORPUSCULAR VOLUME 97.8 fl (80.0-96.0); PLATELET COUNT, AUTOMATED 154 10^3/uL (150-450); WHITE BLOOD COUNT 9.1 10^3/uL (4.0-10.0)
[2020-03-26] MEDS: SLF 3 ML SYR IV SCH ×3 (05:45→20:40)
[2020-03-26] MEDS: HumaLOG INSULIN (NovoLOG) PER UNIT SC SCH ×4 (06:00→17:00)
[2020-03-26 06:22] LABS: BLOOD UREA NITROGEN 47 MG/DL (7-18); CALCIUM LEVEL 8.3 MG/DL (8.8-10.2); CARBON DIOXIDE LEVEL 28 MEQ/L (21-32); CHLORIDE LEVEL 109 MEQ/L (98-107); CREATININE FOR GFR 0.67 MG/DL (0.55-1.30); GLOMERULAR FILTRATION RATE > 60.0 (>32); GLUCOSE, FASTING 93 MG/DL (70-100); MAGNESIUM LEVEL 1.7 MG/DL (1.8-2.4); PHOSPHORUS LEVEL 2.3 MG/DL (2.5-4.9); POTASSIUM SERUM 4.2 MEQ/L (3.5-5.1); SODIUM LEVEL 144 MEQ/L (136-145)
--- NOTE | 2020-03-26 06:46 | REPVR ---
PROCEDURE INFORMATION: Exam: CT Head Without Contrast Exam date and time: 03/26/2020 5:28 AM Age: 89 years old Clinical indication: Altered mental status/memory loss; Confusion or disorientation; Patient HX: Slurred speech TECHNIQUE: Imaging protocol: Computed tomography of the head without contrast. Radiation optimization: All CT scans at this facility use at least one of these dose optimization techniques: automated exposure control; mA and/or kV adjustment per patient size (includes targeted exams where dose is matched to clinical indication); or iterative reconstruction. COMPARISON: CT Head without contrast 09/22/2019 6:24 AM FINDINGS: Brain: No intracranial hemorrhage. No evidence of acute infarction. Mild diffuse cortical volume loss. Patchy white matter hypodensities consistent with chronic small vessel ischemic changes. Ventricles: No hydrocephalus. Bones/joints: Unremarkable. No acute fracture. Sinuses: Visualized sinuses are unremarkable. No fluid levels. Mastoid air cells: No mastoid effusion. Soft tissues: Unremarkable. Vasculature: Atherosclerosis. IMPRESSION: 1. No acute intracranial abnormality. 2. Nonacute/incidental findings in the report. Electronically signed by: Gunner Norwood On 03/26/2020 06:46:13 AM
[2020-03-26] MEDS: SYMBICORT 80/4.5MCG INHALER 6GM INH SCH ×2 (07:16→19:20)
[2020-03-26] MEDS ORDERED: MAG SULF 1GM/100ML (MAG RUN) 1 GM in IV 1 EA IV ONE (08:00)
[2020-03-26] MEDS ORDERED: LABETALOL 100MG/20ML VIAL IV STA (08:16)
--- NOTE | 2020-03-26 08:29 | ECGEPIP ---
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
[2020-03-26] MEDS: BRIMONIDINE 0.15% OPHTH SOLN 5 ML OU SCH ×2 (09:00→20:39)
[2020-03-26] MEDS ORDERED: LABETALOL 100MG/20ML VIAL IV PRN (09:45)
[2020-03-26] MEDS ORDERED: SODIUM PHOSPHATE INJ 20 MMOL in D5W 250 ML IV ONE (10:00)
[2020-03-26] MEDS: NS 1,000 ML IV SCH (11:39)
[2020-03-26 11:41] LABS: HEMATOCRIT 26.6 % (36.0-47.0); MEAN CORPUSCULAR HEMOGLOBIN 33.6 pg (27.0-33.0); MEAN CORPUSCULAR HGB CONC 33.8 g/dl (32.0-36.5); MEAN CORPUSCULAR VOLUME 99.3 fl (80.0-96.0); PLATELET COUNT, AUTOMATED 142 10^3/uL (150-450); RED BLOOD COUNT 2.68 10^6/uL (4.00-5.40)
[2020-03-26] MEDS ORDERED: METOPROLOL TART 25 MG TABLET PO PRN (12:15)
--- NOTE | 2020-03-26 12:21 | IPNPDOC ---
Text Note Date of Service The patient was seen on 03/26/20. NOTE SUBJECTIVE: Kayla was somewhat confused this morning. She could answer yes or no questions but otherwise had trouble with word finding. Her blood pressure was elevated and was treated with IV labetalol. She also had a CT overnight due to confusion. On subsequent encounter, her blood pressure had improved and she was able to answer questions without difficulty. She denied nausea, vomiting, and abdominal pain. She did have maroon colored stools overnight. OBJECTIVE: VITAL SIGNS: see below GENERAL: Alert, comfortable, in no acute distress HEENT: Normocephalic, atraumatic, PERRLA, EOMI, sclera anicteric, moist mucous membranes NECK: Supple, no lymphadenopathy CARDIOVASCULAR: Regular rate and rhythm, normal S1 and S2. No murmurs, rubs, or gallops RESPIRATORY: Clear to auscultation bilaterally with equal air entry bilaterally. No wheezing, rhonchi, or rales. ABDOMEN: Soft, nontender, nondistended, bowel sounds present. EXTREMITIES: No cyanosis or edema. Pulses 2+/4 in bilateral upper and lower extremities SKIN: No rash noted. NEUROLOGIC: Alert, initially was not oriented to person place or time and had difficulty with word finding, but this improved with treatment of hypertension and she was oriented x3 to person, place, and time (month and year) on reevalua tion. No focal deficits appreciated PSYCHIATRIC: Mood and affect appropriate ASSESSMENT: 89-year-old female who presented with history of dizziness and hematemesis 2, admitted for likely upper GI bleed PLAN: # Acute anemia secondary to suspected upper GI bleed. Hg 7.6 on admission, s/p 2 units PRBCs, H/H improved, monitor daily and transfuse as needed to keep Hg above 8 Advance diet as tolerated today. Given initial 80 mg dose IV Protonix, continue 40 mg IV Protonix twice a day. Hold home Plavix and aspirin. GI consulted, appreciate their recommendations, they will hold off on EGD for n ow -Upper GI series ordered for tomorrow # Confusion overnight - Secondary to hypertensive encephalopathy vs - CT head negative. - blood pressure management with home dose of metoprolol succinate and prn metoprolol tartrate for systolic >160 # History of TIA. Hold home Plavix and aspirin in the setting of his acute GI bleed. # COPD with chronic hypoxic respiratory failure No evidence of acute exacerbation. Continue home inhalers. Continue home oxygen requirement 2 L nasal cannula. # Hypertension. restart home metoprolol succinate. -Additional prn metoprolol tartrate as noted above # History of CAD. Restart home statin # Depression/anxiety. Restart home SSRI DVT prophylaxis: Teds and SCDs. GI prophylaxis: IV Protonix twice a day Disposition: Pending clinical improvement Attending attestation: I evaluated and examined the patient in person; I discussed the care with Resident in detail and agree with the plan above. VS,Fishbone, I+O VS, Fishbone, I+O Laboratory Tests 03/25/20 21:59 03/26/20 04:47 03/26/20 11:19 Vital Signs Date Time Temp Pulse Resp B/P (MAP) Pulse Ox O2 Delivery O2 Flow Rate FiO2 03/26/20 10:00 160/92 (114) 03/26/20 08:50 79 03/26/20 08:00 98.6 18 99 Nasal Cannula 2.0 03/25/20 16:25 100 I&O- Last 24 Hours up to 6 AM 03/26/20 05:59 Intake Total 1300 ml Output Total 100 ml Balance 1200 ml BASIM MATHUR D.O. March 26, 2020 12:21 BRADLEY POPE MD March 30, 2020 19:26
--- NOTE | 2020-03-26 18:48 | IPNPDOC ---
Date Seen The patient was seen on 03/26/20. Progress Note Interval History: Patient was noted to have delirium / altered mentation over night with uncont rolled blood pressure, and with prior neurologic history, she had CT head and also received IV labetelol. Her symptoms improved but due these acute neurological changes, after reviewing the risks and benefits, her planned EGD today was cancelled. I examined the patient in evening and she appeared AAO x 3 and at baseline mental status. Exam: Vitals: Reviewed. Afebrile. DISC SANDER: AAO x 3, no focal deficits, but does have some tremulousness with movement. Abdomen: Soft, non- tender, normal bowel sounds. Labs: Reviewed. Stable hemoglobin after transfusion. Slightly elevated BUN. Impression: 89-year-old female patient with Acute onset hematemesis with drop in hemoglobin from baseline, no further episodes on the floor, no melena, patient on aspirin and Plavix (at home and last dose on Tuesday03/24/2020) -- DDx-- likely PUD vs AVM vs Less likely malignancy. Acute change in mental status with abnormally high blood pressure -- DDx-- Hypertensive urgency vs Delirium.. Recommendations: - Patient educated about the test results, possible differential diagnoses and All questions answered. - Continue with IV Protonix 40 MG twice daily for total of 48 hours and then switch to oral 40 mg twice daily for another 8 weeks. - Monitor hemoglobin and hematocrit, and transfuse as needed to keep hemoglobin around 8. Monitor for fluid overload status closely. - In view of the neurological changes, after reviewing the risks and benefits, the EGD was cancelled for today. - Patient to resume on clear liquid diet as tolerated. - Recommend Upper GI xray to evaluate further. - Further endoscopic work up based on the clinical course and above results... - As per patient request, patient daughter ( Daily ) was called and update on the clinical course and plan of care. She also verbalized understanding and agreed. Plan of care discussed with patient and primary team. Patient verbalized understanding and agreed with the plan. VS, I&O, 24H, Fishbone Vital Signs/I&O Vital Signs Date Time Temp Pulse Resp B/P (MAP) Pulse Ox O2 Delivery O2 Flow Rate FiO2 03/26/20 16:00 99.1 71 20 164/97 (119) 100 Nasal Cannula 2.0 03/25/20 16:25 100 I&O- Last 24 Hours up to 6 AM 03/26/20 06:00 Intake Total 1300 ml Output Total 100 ml Balance 1200 ml Laboratory Data 24H LABS Laboratory Tests 2 03/25/20 21:59: Nucleated Red Blood Cells % (auto) 0.2H 03/25/20 22:05: Coronavirus (COVID-19)(PCR) NEGATIVE 03/26/20 00:01: Bedside Glucose (Misc Panel) 94 03/26/20 04:47: Nucleated Red Blood Cells % (auto) 0.0, Anion Gap 7L, Glomerular Filtration Rate > 60.0, Calcium Level 8.3L, Phosphorus Level 2.3L, Magnesium Level 1.7L 03/26/20 06:18: Bedside Glucose (Misc Panel) 92 03/26/20 08:23: Bedside Glucose (Misc Panel) 102 03/26/20 11:19: Nucleated Red Blood Cells % (auto) 0.3H 03/26/20 11:43: Bedside Glucose (Misc Panel) 102 03/26/20 16:53: Bedside Glucose (Misc Panel) 111H CBC/BMP Laboratory Tests 03/25/20 21:59 03/26/20 04:47 03/26/20 11:19 Microbiology Microbiology 03/26/20 Stool Occult Blood (JC) - Final, Complete JUANCARLOS CORDERO MD March 26, 2020 18:48
[2020-03-26] MEDS: ATORVASTATIN 20 MG TAB PO SCH (20:39)
[2020-03-26] MEDS: PARoxetine 20 MG TAB PO SCH (20:39)
[2020-03-26] MEDS: LATANOPROST 0.005% OPHTH SOLN 2.5 ML OU SCH (20:39)
[2020-03-26] MEDS ORDERED: METOPROLOL SUCC (TopROL XL) 50MG **XL** TAB PO SCH (21:00)
[2020-03-27] VITALS: BP 140/68
[2020-03-27] MEDS: HumaLOG INSULIN (NovoLOG) PER UNIT SC SCH ×2 (00:30→06:00)
[2020-03-27] MEDS: PANTOPRAZOLE 40MG VIAL (C9113 PER 1) IV SCH ×2 (02:45→14:25)
[2020-03-27 04:00] VITALS: BP 160/70
[2020-03-27 06:15] LABS: HEMATOCRIT 25.5 % (36.0-47.0); HEMOGLOBIN 8.5 g/dl (12.0-15.5); MEAN CORPUSCULAR HEMOGLOBIN 33.6 pg (27.0-33.0); MEAN CORPUSCULAR HGB CONC 33.3 g/dl (32.0-36.5); MEAN CORPUSCULAR VOLUME 100.8 fl (80.0-96.0); PLATELET COUNT, AUTOMATED 135 10^3/uL (150-450); RED BLOOD COUNT 2.53 10^6/uL (4.00-5.40); WHITE BLOOD COUNT 7.2 10^3/uL (4.0-10.0)
[2020-03-27 06:24] LABS: BLOOD UREA NITROGEN 24 MG/DL (7-18); CALCIUM LEVEL 8.5 MG/DL (8.8-10.2); CARBON DIOXIDE LEVEL 31 MEQ/L (21-32); CHLORIDE LEVEL 108 MEQ/L (98-107); CREATININE FOR GFR 0.67 MG/DL (0.55-1.30); GLOMERULAR FILTRATION RATE > 60.0 (>32); GLUCOSE, FASTING 84 MG/DL (70-100); POTASSIUM SERUM 3.8 MEQ/L (3.5-5.1); SODIUM LEVEL 145 MEQ/L (136-145)
[2020-03-27] MEDS: SLF 3 ML SYR IV SCH ×3 (06:31→20:33)
[2020-03-27] MEDS: SYMBICORT 80/4.5MCG INHALER 6GM INH SCH (07:23)
[2020-03-27 07:32] LABS: PHOSPHORUS LEVEL 2.7 MG/DL (2.5-4.9)
[2020-03-27 08:00] VITALS: BP 148/68
[2020-03-27] MEDS ORDERED: E-Z-PAQUE 96% w/w SUSP 176GM BTL As Ordered ONE (08:51)
[2020-03-27] MEDS ORDERED: E-Z-HD 98% w/w 340GM SUSP BTL As Ordered ONE (08:51)
[2020-03-27] MEDS: BRIMONIDINE 0.15% OPHTH SOLN 5 ML OU SCH ×2 (11:28→20:32)
[2020-03-27 12:00] VITALS: BP 150/82
--- NOTE | 2020-03-27 14:36 | IPNPDOC ---
Text Note Date of Service The patient was seen on 03/27/20. NOTE SUBJECTIVE: Kayla was seen and examined this morning, sitting up in a whee lchair prior to being taken down to radiology for an upper GI series. She states she is feeling fairly well this morning. No nausea, vomiting, diarrhea, or abdominal pain. She tolerated a clear liquid diet yesterday. She has been nothing by mouth since midnight due to the upper GI series this morning. She states she has an appetite and would like to try regular food for lunch. OBJECTIVE: VITAL SIGNS: see below GENERAL: Alert, comfortable, in no acute distress HEENT: Normocephalic, atraumatic, sclera anicteric, moist mucous membranes NECK: Supple, no lymphadenopathy CARDIOVASCULAR: Regular rate and rhythm, normal S1 and S2. No murmurs, rubs, or gallops RESPIRATORY: Clear to auscultation bilaterally with equal air entry bilaterally. No wheezing, rhonchi, or rales. ABDOMEN: Soft, nontender, nondistended, bowel sounds present. EXTREMITIES: No cyanosis or edema. Pulses 2+/4 in bilateral upper and lower extremities SKIN: No rash noted. NEUROLOGIC: Alert and oriented x3 to person, place, and time (month and year). No focal deficits appreciated PSYCHIATRIC: Mood and affect appropriate ASSESSMENT: 89-year-old female who presented with history of dizziness and hematemesis 2, admitted for likely upper GI bleed PLAN: # Acute anemia secondary to suspected upper GI bleed. Hg 7.6 on admission, s/p 2 units PRBCs, H/H improved, monitor daily and transfuse as needed to keep Hg above 8 Advance diet as tolerated today. Given initial 80 mg dose IV Protonix, continue 40 mg IV Protonix twice a day. Hold home Plavix and aspirin. GI consulted, appreciate their recommendations, they will hold off on EGD for now -Upper GI series done today, pending radiologist report # Confusion, resolved - Secondary to hypertensive encephalopathy vs - CT head negative. # History of TIA. Hold home Plavix and aspirin in the setting of his acute GI bleed. # COPD with chronic hypoxic respiratory failure No evidence of acute exacerbation. Continue home inhalers. Continue home oxygen requirement 2 L nasal cannula. # Hypertension. increased dose of metoprolol succinate. -consider adding another medication if hypertension persists # History of CAD. continue home statin # Depression/anxiety. continue home SSRI DVT prophylaxis: Teds and SCDs. GI prophylaxis: IV Protonix twice a day Disposition: possible d/c tomorrow if H/H remains stable Attending attestation: I evaluated and examined the patient in person; I discussed the care with Resident in detail and agree with the plan above. VS,Fishbone, I+O VS, Fishbone, I+O Laboratory Tests 03/27/20 04:50 Vital Signs Date Time Temp Pulse Resp B/P (MAP) Pulse Ox O2 Delivery O2 Flow Rate FiO2 03/27/20 12:00 99.4 128 18 150/82 (104) 94 Nasal Cannula 2.0 03/25/20 16:25 100 I&O- Last 24 Hours up to 6 AM 03/27/20 06:00 Intake Total 1785 ml Output Total 825 ml Balance 960 ml BASIM MATHUR D.O. March 27, 2020 14:36 BRADLEY POPE MD March 30, 2020 19:37
--- NOTE | 2020-03-27 15:16 | REP ---
UPPER GI SINGLE CONTRAST AND SMALL BOWEL FOLLOW-THROUGH The procedure was performed under the direct supervision of Dr. Marley. The images were reviewed with Dr. Marley. 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 The intestinal gas pattern is nonspecific. There are surgical josé miguel and bowel sutures noted in the pelvis. There are vascular calcifications identified. Liquid barium was administered in the erect and prone oblique positions in order to perform a single contrast upper GI examination. Additionally liquid barium was given at the end of the examination in order to perform a small bowel follow-through. The oral and pharyngeal stages of deglutition are unremarkable. There are esophageal transport there are tertiary waves. There is no esophagitis stricture or mucosal ring. There is a sliding type hiatal hernia. Gastroesophageal reflux is not demonstrated on this examination. In the fundus of the stomach there is a posterior gastric diverticulum. There is irregular mucosa in the antrum with small barium projections suspicious for ulcers. There is spasm of the antrum. Recommend endoscopy for further evaluation. The duodenum is grossly normal. The mucosal folds are smooth and regular. There is no duodenitis pancreatitis peptic ulcer disease or neoplasm. There is a diverticulum of the descending portion of the duodenum. The visualized portion of the proximal small bowel appears normal in course and caliber. The barium column was followed through the small bowel to the level of the terminal ileum. Small bowel transit time is approximately 1 hour. During fluoroscopy gentle palpation shows all loops are freely movable and pliable. There are no fixed or angulated loops. The small bowel mucosal pattern is normal in course and caliber. There is no transition to suggest a partial small-bowel obstruction. The cecum lies deep within the pelvis and is difficult to see the terminal ileum. However, there are no separation of loops. Impression: 1. Tertiary waves. 2. There is a sliding type hiatal hernia. 3. 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 4. There is irregular mucosa in the antrum with small barium projections suspicious for ulcers. There is spasm of the antrum. Recommend endoscopy for further evaluation. 4.2 minutes of fluoroscopy time was utilized for this procedure. Electronically Signed by BLESSING Temple 03/27/2020 02:47 P Electronically Signed by Saurabh Marley MD 03/27/2020 03:07 P
[2020-03-27 20:00] VITALS: BP 138/65
[2020-03-27] MEDS: METOPROLOL SUCC (TopROL XL) 100MG *XL* TAB PO SCH (20:32)
[2020-03-27] MEDS: LATANOPROST 0.005% OPHTH SOLN 2.5 ML OU SCH (20:32)
[2020-03-27] MEDS: PARoxetine 20 MG TAB PO SCH (20:32)
[2020-03-28] VITALS (9 sets, daily range): BP systolic 120–152; BP diastolic 62–72
[2020-03-28] MEDS: PANTOPRAZOLE 40MG VIAL (C9113 PER 1) IV SCH ×2 (02:05→13:16)
[2020-03-28] MEDS: SLF 3 ML SYR IV SCH ×3 (05:47→20:57)
[2020-03-28 06:16] LABS: HEMATOCRIT 23.4 % (36.0-47.0); HEMOGLOBIN 7.9 g/dl (12.0-15.5); MEAN CORPUSCULAR HEMOGLOBIN 34.1 pg (27.0-33.0); MEAN CORPUSCULAR HGB CONC 33.8 g/dl (32.0-36.5); MEAN CORPUSCULAR VOLUME 100.9 fl (80.0-96.0); PLATELET COUNT, AUTOMATED 110 10^3/uL (150-450); RED BLOOD COUNT 2.32 10^6/uL (4.00-5.40); WHITE BLOOD COUNT 4.3 10^3/uL (4.0-10.0)
[2020-03-28 06:32] LABS: BLOOD UREA NITROGEN 18 MG/DL (7-18); CARBON DIOXIDE LEVEL 29 MEQ/L (21-32); CHLORIDE LEVEL 104 MEQ/L (98-107); CREATININE FOR GFR 0.67 MG/DL (0.55-1.30); GLOMERULAR FILTRATION RATE > 60.0 (>32); GLUCOSE, FASTING 106 MG/DL (70-100); MAGNESIUM LEVEL 1.7 MG/DL (1.8-2.4); PHOSPHORUS LEVEL 2.9 MG/DL (2.5-4.9); POTASSIUM SERUM 3.6 MEQ/L (3.5-5.1); SODIUM LEVEL 141 MEQ/L (136-145)
[2020-03-28] MEDS: SYMBICORT 80/4.5MCG INHALER 6GM INH SCH ×2 (07:02→18:12)
[2020-03-28] MEDS ORDERED: MAG SULF 1GM/100ML (MAG RUN) 1 GM in IV 1 EA IV ONE (08:00)
[2020-03-28] MEDS ORDERED: POTASSIUM CHLORIDE 10 MEQ SR TABLET PO ONE (08:00)
[2020-03-28] MEDS: BRIMONIDINE 0.15% OPHTH SOLN 5 ML OU SCH ×2 (08:07→20:57)
--- NOTE | 2020-03-28 10:34 | IPNPDOC ---
Text Note Date of Service The patient was seen on 03/28/20. NOTE SUBJECTIVE: Kayla was seen and examined this morning, sitting up in a chair. She states she already had breakfast and tolerated this without any nausea, vomiting, abdominal pain. No diarrhea. No episodes of confusion OBJECTIVE: VITAL SIGNS: see below GENERAL: Alert, comfortable, in no acute distress HEENT: Normocephalic, atraumatic, sclera anicteric, moist mucous membranes NECK: Supple, no lymphadenopathy CARDIOVASCULAR: Regular rate and rhythm, normal S1 and S2. No murmurs, rubs, or gallops RESPIRATORY: Clear to auscultation bilaterally with equal air entry bilaterally. No wheezing, rhonchi, or rales. ABDOMEN: Soft, nontender, nondistended, bowel sounds present. EXTREMITIES: No cyanosis or edema. Pulses 2+/4 in bilateral upper and lower extremities SKIN: No rash noted. NEUROLOGIC: Alert and oriented x3 to person, place, and time (month and year). No focal deficits appreciated PSYCHIATRIC: Mood and affect appropriate ASSESSMENT: 89-year-old female who presented with history of dizziness and hematemesis 2, admitted for likely upper GI bleed PLAN: # Acute anemia secondary to suspected upper GI bleed. Hg 7.6 on admission, s/p 2 units PRBCs, H/H improved, monitor daily and transfuse as needed to keep Hg above 8 Advance diet as tolerated today. Given initial 80 mg dose IV Protonix, continue 40 mg IV Protonix twice a day. Hold home Plavix and aspirin. - H/H trending down slowly the past two days -Upper GI series shows likely ulcers which could be the source of bleeding. GI consulted, appreciate their recommendations, EGD planned for this afternoon # Confusion, resolved - suspect secondary to hypertensive encephalopathy, has resolved with blood pressure control. - CT head negative. # History of TIA. Hold home Plavix and aspirin in the setting of his acute GI bleed. # COPD with chronic hypoxic respiratory failure No evidence of acute exacerbation. Continue home inhalers. Continue home oxygen requirement 2 L nasal cannula. # Hypertension. contineu with increased dose of metoprolol succinate, better controlled today # History of CAD. continue home statin # Depression/anxiety. continue home SSRI DVT prophylaxis: Teds and SCDs. GI prophylaxis: IV Protonix twice a day Disposition: pending clinical improvement Attending attestation: I evaluated and examined the patient in person; I discussed the care with Resident in detail and agree with the plan above. VS,Fishbone, I+O VS, Fishbone, I+O Laboratory Tests 03/28/20 05:45 Vital Signs Date Time Temp Pulse Resp B/P (MAP) Pulse Ox O2 Delivery O2 Flow Rate FiO2 03/28/20 08:00 2.0 03/28/20 06:00 97.9 77 18 129/71 (90) 96 Nasal Cannula 03/25/20 16:25 100 I&O- Last 24 Hours up to 6 AM 03/28/20 06:00 Intake Total 520 ml Output Total 350 ml Balance 170 ml BASIM MATHUR D.O. March 28, 2020 10:34 BRADLEY POPE MD March 30, 2020 19:49
[2020-03-28] MEDS ORDERED: fentaNYL 100 MCG/2 ML INJECTION (J3010) As Ordered ONE (15:38)
[2020-03-28] MEDS ORDERED: propofoL 200 MG/20 ML VIAL As Ordered ONE (15:39)
[2020-03-28] MEDS ORDERED: LIDOCAINE 2% 100MG/5ML SDV (FOR ANES.) As Ordered ONE (15:39)
--- NOTE | 2020-03-28 16:51 | ROOR ---
Patient Name: Kayla Taylor Procedure Date: 03/28/2020 4:06 PM Date of : 1930 Age: 89 Room: [facility] Gender: Female Note Status: Finalized Procedure: Upper GI endoscopy Indications: Acute post hemorrhagic anemia Providers: Devonte Mas MD Referring MD: 2. Inpatient 2. Inpatient, Umberto Knott MD Requesting Provider: Medicines: Monitored Anesthesia Care Complications: No immediate complications. Procedure: Pre-Anesthesia Assessment: - Prior to the procedure, a History and Physical was performed, and patient medications and allergies were reviewed. The patient is competent. The risks and benefits of the procedure and the sedation options and risks were discussed with the patient. All questions were answered and informed consent was obtained. Patient identification and proposed procedure were verified by the physician, the nurse and the anesthesiologist in the procedure room. Mental Status Examination: alert and oriented. Airway Examination: normal oropharyngeal airway and neck mobility. Respiratory Examination: clear to auscultation. CV Examination: normal. Prophylactic Antibiotics: The patient does not require prophylactic antibiotics. Prior Anticoagulants: The patient has taken no previous anticoagulant or antiplatelet agents. ASA Grade Assessment: III - A patient with severe systemic disease. After reviewing the risks and benefits, the patient was deemed in satisfactory condition to undergo the procedure. The anesthesia plan was to use monitored anesthesia care (MAC). Immediately prior to administration of medications, the patient was re-assessed for adequacy to receive sedatives. The heart rate, respiratory rate, oxygen saturations, blood pressure, adequacy of pulmonary ventilation, and response to care were monitored throughout the procedure. The physical status of the patient was re-assessed after the procedure. The Endoscope was introduced through the mouth, and advanced to the second part of duodenum. The upper GI endoscopy was accomplished without difficulty. The patient tolerated the procedure well. Findings: The examined esophagus was normal. Two non-bleeding cratered gastric ulcers with a flat pigmented spot (Matt Class IIc) were found in the gastric antrum. The largest lesion was 10 mm in largest dimension. For hemostasis, one hemostatic clip was successfully placed. There was no bleeding at the end of the procedure. The duodenal bulb and second portion of the duodenum were normal. Impression: - Normal esophagus. - Non-bleeding gastric ulcers with a flat pigmented spot (Matt Class IIc). Clip was placed. - Normal duodenal bulb and second portion of the duodenum. - No specimens collected. Recommendation: - Patient has a contact number available for emergencies. The signs and symptoms of potential delayed complications were discussed with the patient. Return to normal activities tomorrow. Written discharge instructions were provided to the patient. - Resume previous diet. - Continue present medications. - Use Protonix (pantoprazole) 40 mg PO twice daily - to be taken in morning (1/2 hour before breakfast) and at bedtime ( atleast 3 hours after last meal) for 8 weeks. - Repeat upper endoscopy in 3 months to check healing. - Telephone GI clinic to schedule appointment in [facility] (address [address], [address], [place] [address]) in 4 -- 6 weeks. Please call GI clinic @ [phone] for apppointment date and time. - Return to primary care physician. Devonte Mas MD Devonte Mas MD 03/28/2020 4:50:57 PM Electronically signed by Devonte Mas MD Number of Addenda: 0 Note Initiated On: 03/28/2020 4:06 PM Estimated Blood Loss: Estimated blood loss was minimal.
[2020-03-28] MEDS: ATORVASTATIN 20 MG TAB PO SCH (20:56)
[2020-03-28] MEDS: PARoxetine 20 MG TAB PO SCH (20:56)
[2020-03-28] MEDS: METOPROLOL SUCC (TopROL XL) 100MG *XL* TAB PO SCH (20:56)
[2020-03-28] MEDS: LATANOPROST 0.005% OPHTH SOLN 2.5 ML OU SCH (20:57)
[2020-03-28] MEDS: ALBUTEROL 90 MCG/ACT 8GM HFA INHALER INH PRN (22:42)
[2020-03-29] VITALS (8 sets, daily range): BP systolic 110–142; BP diastolic 60–87
[2020-03-29] MEDS: PANTOPRAZOLE 40MG VIAL (C9113 PER 1) IV SCH ×2 (05:35→18:44)
[2020-03-29] MEDS: SLF 3 ML SYR IV SCH ×3 (05:35→20:09)
[2020-03-29 06:55] LABS: HEMATOCRIT 29.5 % (36.0-47.0); MEAN CORPUSCULAR HEMOGLOBIN 33.1 pg (27.0-33.0); MEAN CORPUSCULAR HGB CONC 33.9 g/dl (32.0-36.5); MEAN CORPUSCULAR VOLUME 97.7 fl (80.0-96.0); PLATELET COUNT, AUTOMATED 117 10^3/uL (150-450); RED BLOOD COUNT 3.02 10^6/uL (4.00-5.40); WHITE BLOOD COUNT 8.3 10^3/uL (4.0-10.0)
[2020-03-29 07:12] LABS: BLOOD UREA NITROGEN 14 MG/DL (7-18); CALCIUM LEVEL 8.2 MG/DL (8.8-10.2); CARBON DIOXIDE LEVEL 28 MEQ/L (21-32); CHLORIDE LEVEL 101 MEQ/L (98-107); CREATININE FOR GFR 0.67 MG/DL (0.55-1.30); GLOMERULAR FILTRATION RATE > 60.0 (>32); GLUCOSE, FASTING 132 MG/DL (70-100); POTASSIUM SERUM 3.9 MEQ/L (3.5-5.1); SODIUM LEVEL 136 MEQ/L (136-145)
[2020-03-29] MEDS: SYMBICORT 80/4.5MCG INHALER 6GM INH SCH ×2 (07:14→20:10)
[2020-03-29 07:49] LABS: MAGNESIUM LEVEL 1.8 MG/DL (1.8-2.4); PHOSPHORUS LEVEL 2.5 MG/DL (2.5-4.9)
[2020-03-29] MEDS: ALBUTEROL 90 MCG/ACT 8GM HFA INHALER INH PRN (07:54)
[2020-03-29] MEDS: BRIMONIDINE 0.15% OPHTH SOLN 5 ML OU SCH ×2 (08:32→20:09)
[2020-03-29] MEDS ORDERED: MAG SULF 1GM/100ML (MAG RUN) 1 GM in IV 1 EA IV ONE (10:00)
[2020-03-29 10:03] LABS: VENOUS BASE EXCESS -0.6 (-2.0-2.0); VENOUS HCO3 24.2 MEQ/L (23.0-27.0); VENOUS PARTIAL PRESSURE CO2 40.5 mmHg (38.0-50.0); VENOUS PARTIAL PRESSURE O2 47.8 mmHg (30.0-50.0); VENOUS PH 7.394 UNITS (7.330-7.430); VENOUS STANDARD HCO3 23.6 MEQ/L; VENOUS TOTAL CO2 25.4 MEQ/L (24.0-28.0)
[2020-03-29 12:08] LABS: ABG BASE EXCESS 1.2 (-2.0-2.0); ABG O2 SATURATION 95.4 % (95.0-99.0); ABG PARTIAL PRESSURE CO2 48.3 mmHg (35.0-45.0); ABG PARTIAL PRESSURE O2 80.9 mmHg (75.0-100.0); ABG STANDARD HCO3 25.5 MEQ/L (22.0-26.0); ABG TOTAL CO2 28.5 MEQ/L (23.0-31.0); ABG pH (ARTERIAL) 7.366 UNITS (7.350-7.450)
[2020-03-29 12:56] LABS: CK-MB VALUE MASS 5.1 NG/ML (<3.6); MB/CK RELATIVE INDEX 3.54 (< OR =4); TROPONIN I 2.18 NG/ML (< 0.10)
[2020-03-29] MEDS ORDERED: METOPROLOL TART 25 MG TABLET PO ONE (13:00)
[2020-03-29] MEDS ORDERED: FUROSEMIDE 40MG/4ML VIAL (J1940) IV ONE (13:00)
[2020-03-29] MEDS ORDERED: METOPROLOL 5 MG/5 ML VIAL IV STA (13:28)
[2020-03-29] MEDS ORDERED: AMIODARONE HCL 150 MG in IV 1 EA IV STA (13:30)
--- NOTE | 2020-03-29 13:36 | IPNPDOC ---
Text Note Date of Service The patient was seen on 03/29/20. NOTE SUBJECTIVE: Kayla was seen and examined this morning, laying in bed. She s tates she has not had breakfast yet. She tolerated the procedure yesterday. She denies nausea, vomiting, abdominal pain, diarrhea. She does not feel short of breath but her breathing does appear somewhat labored OBJECTIVE: VITAL SIGNS: see below GENERAL: Alert, comfortable, in no acute distress HEENT: Normocephalic, atraumatic, sclera anicteric, moist mucous membranes NECK: Supple, no lymphadenopathy CARDIOVASCULAR: Regular rate and rhythm, normal S1 and S2. No murmurs, rubs, or gallops RESPIRATORY: Clear to auscultation bilaterally with equal air entry bilaterally. No wheezing, rhonchi, or rales. Breathing somewhat labored ABDOMEN: Soft, nontender, nondistended, bowel sounds present. EXTREMITIES: No cyanosis or edema. Pulses 2+/4 in bilateral upper and lower extremities SKIN: No rash noted. NEUROLOGIC: Alert and oriented x3 to person, place, and time (month and year). No focal deficits appreciated PSYCHIATRIC: Mood and affect appropriate ASSESSMENT: 89-year-old female who presented with history of dizziness and hematemesis 2, admitted for likely upper GI bleed PLAN: # Acute anemia secondary to suspected upper GI bleed. Hg 7.6 on admission, s/p 3 units PRBCs, H/H improved, monitor daily and transfuse as needed to keep Hg above 8 Given initial 80 mg dose IV Protonix, continue 40 mg IV Protonix twice a day. -Upper GI series shows likely ulcers which could be the source of bleeding. GI consulted, appreciate their recommendations -EGD revealed gastric ulcers which were clipped. # Atrial fibrillation, new onset, elevated troponin - seen on EKG, rate in the 110s. no know history. - transfer to PCU, stat TTE, repeat troponin q6 hours - hold off on full anticoagulation for now given recent GI bleed and procedure less than 24 hours ago. start aspirin 325mg. - cardiology consulted, appreciate their recommendations # Confusion, resolved - suspect secondary to hypertensive encephalopathy, has resolved with blood pressure control. - CT head negative. # History of TIA. Held home Plavix and aspirin in the setting of acute GI bleed. Restarted aspirin as noted above # COPD with chronic hypoxic respiratory failure No evidence of acute exacerbation. Continue home inhalers. Continue home oxygen requirement 2 L nasal cannula. # Hypertension. continue with increased dose of metoprolol succinate, better controlled today # History of CAD. continue home statin # Depression/anxiety. continue home SSRI DVT prophylaxis: Teds and SCDs. GI prophylaxis: IV Protonix twice a day Disposition: pending clinical improvement Attending attestation: I evaluated and examined the patient in person; I discussed the care with Resident in detail and agree with the plan above. VS,Fishbone, I+O VS, Fishbone, I+O Laboratory Tests 03/29/20 06:32 Vital Signs Date Time Temp Pulse Resp B/P (MAP) Pulse Ox O2 Delivery O2 Flow Rate FiO2 03/29/20 12:22 110 122/82 03/29/20 11:51 100.4 24 Nasal Cannula 2.0 03/29/20 06:00 95 03/25/20 16:25 100 I&O- Last 24 Hours up to 6 AM 03/29/20 06:00 Intake Total 1560 ml Output Total 200 ml Balance 1360 ml BASIM MATHUR D.O. March 29, 2020 13:36 BRADLEY POPE MD March 30, 2020 19:55
[2020-03-29] MEDS ORDERED: ASPIRIN 325 MG TAB PO ONE (14:00)
[2020-03-29] MEDS ORDERED: AMIODARONE HCL 150 MG/100 ML PREMIXED BAG (NEXTERONE) (J0282 PER 30MG) As Ordered ONE (14:29)
[2020-03-29 17:52] LABS: CK-MB VALUE MASS 4.5 NG/ML (<3.6); MB/CK RELATIVE INDEX 2.32 (< OR =4); TROPONIN I 1.78 NG/ML (< 0.10)
[2020-03-29] MEDS: PARoxetine 20 MG TAB PO SCH (20:08)
[2020-03-29] MEDS: METOPROLOL SUCC (TopROL XL) 100MG *XL* TAB PO SCH (20:08)
[2020-03-29] MEDS: LATANOPROST 0.005% OPHTH SOLN 2.5 ML OU SCH (20:09)
[2020-03-29 23:50] LABS: CK-MB VALUE MASS 4.5 NG/ML (<3.6); MB/CK RELATIVE INDEX 3.02 (< OR =4); TROPONIN I 1.17 NG/ML (< 0.10)
[2020-03-30] VITALS (7 sets, daily range): BP systolic 117–176; BP diastolic 58–83
--- NOTE | 2020-03-30 01:05 | ECGEPIP ---
[facility] Test Date: 2020-03-29 Pat Name: BRENT HAYES Department: Room: [place] [address] Gender: Female Referral Clerk: ANDREA : 1930 Requested By: ORION DAVID Order Number: [id number] Reading MD: Gorge Karimi Measurements Intervals [place] Rate: 115 P: DE: 0 QRS: 70 QRSD: 86 T: 99 QT: 332 QTc: 460 Interpretive Statements ATRIAL FIBRILLATION WITH RAPID VENTRICULAR RESPONSE NONSPECIFIC ST & T-WAVE ABNORMALITY ABNORMAL RHYTHM ECG Last tracing on 03/25/20 at 11:20, normal sinus rhythm was noted Electronically Signed on 03-30-2020 1:05:09 EDT by Gorge Karimi
--- NOTE | 2020-03-30 01:10 | ECGEPIP ---
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
[2020-03-30] MEDS: PANTOPRAZOLE 40MG VIAL (C9113 PER 1) IV SCH ×2 (05:02→06:00)
[2020-03-30] MEDS: SLF 3 ML SYR IV SCH ×3 (05:03→20:57)
[2020-03-30 05:13] LABS: HEMATOCRIT 31.4 % (36.0-47.0); HEMOGLOBIN 10.3 g/dl (12.0-15.5); MEAN CORPUSCULAR HEMOGLOBIN 32.2 pg (27.0-33.0); MEAN CORPUSCULAR HGB CONC 32.8 g/dl (32.0-36.5); MEAN CORPUSCULAR VOLUME 98.1 fl (80.0-96.0); PLATELET COUNT, AUTOMATED 139 10^3/uL (150-450); WHITE BLOOD COUNT 6.7 10^3/uL (4.0-10.0)
[2020-03-30 05:37] LABS: BLOOD UREA NITROGEN 18 MG/DL (7-18); CALCIUM LEVEL 8.2 MG/DL (8.8-10.2); CARBON DIOXIDE LEVEL 33 MEQ/L (21-32); CHLORIDE LEVEL 97 MEQ/L (98-107); CREATININE FOR GFR 0.89 MG/DL (0.55-1.30); GLOMERULAR FILTRATION RATE > 60.0 (>32); GLUCOSE, FASTING 105 MG/DL (70-100); MAGNESIUM LEVEL 1.9 MG/DL (1.8-2.4); PHOSPHORUS LEVEL 2.7 MG/DL (2.5-4.9); POTASSIUM SERUM 3.5 MEQ/L (3.5-5.1); SODIUM LEVEL 136 MEQ/L (136-145)
--- NOTE | 2020-03-30 07:24 | ECHO ---
DATE OF PROCEDURE: 03/29/2020 DATE OF : 1930 REFERRING PROVIDER: Dr. Mylene Hooks PATIENT LOCATION: Room 3225 REASON FOR THE STUDY: Atrial fibrillation, abnormal serum troponin/non-ST elevation myocardial infarction (NSTEMI). 2-D MEASUREMENTS: IVS: 0.9 cm LV: 2.9 cm LVPW: 0.9 cm LA: 3.2 cm Aorta: 2.7 cm IVC: 2.2 cm DOPPLER MEASUREMENTS: Peak velocity across the aortic valve: 0.8 m/sec Peak velocity across the LVOT: 0.5 m/sec 2-D COMMENTS: 1. Normal left ventricular size and wall thickness but with a depressed global left ventricular systolic function. The anteroseptum appeared to be both dyskinetic and hypokinetic. The estimated ventricular systolic ejection fraction is 35-40%. 2. Normal left atrium. Normal right atrium and right ventricle. Findings consistent with right ventricular hypertrophy. 3. The atrial septum appeared to be normal without evidence of defect or shunt. 4. Normal aortic root. 5. Trace pericardial effusion, no evidence of cardiac tamponade. 6. Mildly calcified aortic valve with normal leaflet excursion. Moderately calcified mitral annulus with normal anterior mitral valve leaflet motion. Normal tricuspid valve. The pulmonic valve was not well visualized. 7. The inferior vena cava was mildly enlarged, central venous pressure is probably elevated. DOPPLER: It detects trace aortic regurgitation, trace mitral regurgitation. Assessment of the left ventricular diastolic function was limited in view of the underlying atrial fibrillation. IMPRESSION: 1. Moderately depressed global left ventricular systolic dysfunction with regional wall motion abnormalities that may be related to underlying coronary artery disease. 2. Aortic valve sclerosis with trace aortic radiation but no aortic stenosis. 3. Mitral annulus calcification with trace mitral regurgitation. 4. Trace pericardial effusion. 5. This was compared with most recent echocardiogram done last fall, left ventricular systolic function was normal.
[2020-03-30] MEDS: SYMBICORT 80/4.5MCG INHALER 6GM INH SCH ×2 (07:31→17:58)
[2020-03-30] MEDS: BRIMONIDINE 0.15% OPHTH SOLN 5 ML OU SCH ×2 (08:05→20:54)
[2020-03-30] MEDS ORDERED: POTASSIUM CHLORIDE 10 MEQ SR TABLET PO ONE (09:00)
[2020-03-30] MEDS: PANTOPRAZOLE 40MG TAB (PROTONIX) PO SCH ×2 (09:55→20:55)
--- NOTE | 2020-03-30 10:53 | IPNPDOC ---
Date Seen The patient was seen on 03/30/20. Progress Note SUBJECTIVE: 89-year-old female with past medical history of COPD, oxygen dependent, coronary artery disease, TIA, anemia, was admitted for GI bleed. Patient underwent EGD which showed nonbleeding gastric ulcers, clip was placed. Patient has received a total of 3 units packed blood cells, H&H has been stable. Patient developed A. fib with RVR yesterday, likely secondary to volume overload, treated with amiodarone and metoprolol along with Lasix. Patient remains in A. fib, dyspnea has improved significantly from yesterday, comfortable in bed without any complaints at this time. She denies any chest pain, nausea, vomiting, diarrhea or constipation. 10 point review of system is negative except for above PHYSICAL EXAMINATION: VITAL SIGNS: Please see below. GENERAL: No distress HEENT: Normocephalic, atraumatic, moist mucous membranes NECK: Supple CARDIOVASCULAR EXAMINATION: S1, S2, irregularly irregular, no murmurs RESPIRATORY EXAMINATION: Scattered rhonchi, no wheezing ABDOMINAL EXAMINATION: Soft, nontender, nondistended, positive bowel sounds EXTREMITIES: Bilateral lower extremity edema SKIN: No rash NEUROLOGICAL EXAMINATION: no focal deficits PSYCHIATRIC EXAMINATION: Calm and cooperative LABORATORY DATA, IMAGING STUDIES, MICROBIOLOGY: Please see below. ASSESSMENT AND PLAN: 89-year-old female with multiple medical comorbidities, was admitted for acute GI bleed secondary to gastric ulcers, now with new onset A. fib. PROBLEMS: 1. GI bleed: Status post EGD, nonbleeding gastric ulcers found status post clipping, H&H stable, continue PPI, transfuse to keep hemoglobin greater than a. 2. New onset A. fib: Not a candidate for anticoagulation given recent bleed, continue metoprolol for rate control, give another dose of Lasix 20 mg IV 1 today. 3. Coronary artery disease: Troponin elevated yesterday, likely secondary to demand ischemia from new onset A. fib with RVR, trended down with rate control and diuresis, continue optimal medical management with beta javier and statin. 4. COPD: Continue Symbicort and Proventil as needed, supplement oxygen as needed to maintain O2 sats between 80-92%. DVT prophylaxis: SCDs. GI prophylaxis: PPI VS, I&O, 24H, Fishbone Vital Signs/I&O Vital Signs Date Time Temp Pulse Resp B/P (MAP) Pulse Ox O2 Delivery O2 Flow Rate FiO2 03/30/20 08:00 100.0 92 22 176/83 (114) 99 Nasal Cannula 2.0 03/25/20 16:25 100 I&O- Last 24 Hours up to 6 AM 03/30/20 06:00 Intake Total 440 ml Output Total 1350 ml Balance -910 ml Laboratory Data 24H LABS Laboratory Tests 2 03/29/20 11:55: Bedside Glucose (Misc Panel) 201H 03/29/20 12:01: Blood Gas Bicarbonate Standard 25.5, Arterial Blood pH 7.366, Arterial Blood Partial Pressure CO2 48.3H, Arterial Blood Partial Pressure O2 80.9, Arterial Blood Total CO2 28.5, Arterial Blood HCO3 27.0H, Arterial Blood Base Excess 1.2, Arterial Blood Oxygen Saturation 95.4 03/29/20 12:06: Total Creatine Kinase 144, Creatine Kinase MB 5.1H, Creatine Kinase MB Relative Index 3.54, Troponin I 2.18*H 03/29/20 16:58: Total Creatine Kinase 194H, Creatine Kinase MB 4.5H, Creatine Kinase MB Relative Index 2.32, Troponin I 1.78*H 03/29/20 18:12: Bedside Glucose (Misc Panel) 140H 03/29/20 23:11: Total Creatine Kinase 149, Creatine Kinase MB 4.5H, Creatine Kinase MB Relative Index 3.02, Troponin I 1.17#H 03/30/20 04:59: Nucleated Red Blood Cells % (auto) 0.0, Anion Gap 6L, Glomerular Filtration Rate > 60.0, Calcium Level 8.2L, Phosphorus Level 2.7, Magnesium Level 1.9 CBC/BMP Laboratory Tests 03/30/20 04:59 Microbiology Microbiology 03/26/20 Stool Occult Blood (JC) - Final, Complete BRADLEY POPE MD March 30, 2020 10:53
[2020-03-30] MEDS ORDERED: FUROSEMIDE 20MG/2ML VIAL (J1940) IV ONE (11:00)
[2020-03-30] MEDS ORDERED: FUROSEMIDE 20 MG TAB PO ONE (11:30)
[2020-03-30] MEDS: ramipriL 1.25 MG CAP PO SCH (14:53)
--- NOTE | 2020-03-30 16:25 | CR ---
DATE OF CONSULTATION: 03/30/2020 PATIENT LOCATION: Room 3225. CONSULTATION REPORT FOR: Dr. Daily Silva REASON FOR CONSULTATION: Atrial fibrillation, abnormal serum troponin. HISTORY OF PRESENT ILLNESS: An 89-year-old woman who was admitted on 03/25/2020 after two episodes of hematemesis that happened at home in the morning hours of the admission. She was brought to the emergency room (ER) by her daughter and she was to be anemic with a hemoglobin and hematocrit of 7.6 and 23.6 respectively. She was admitted for further management and monitoring and she was transfused three units of packed red blood cells. She had an upper gastrointestinal (GI) series on 03/27/2020 that revealed a sliding hiatal hernia and there were findings consistent with gastric ulcers at the level of the antrum. She had a gastroscopy done on 03/28/2020 and it revealed normal esophagus with known bleeding gastric ulcers with a flat pigmented spot and a clip was placed. The jejunal bulb and second portion of the duodenum were normal. She was planning to go home and she developed atrial fibrillation with a rapid ventricular rate and her blood work revealed an abnormal serum troponin on 03/29/2020 up to 2.18. She was transferred from the floor to the progressive care unit (PCU) for further management and monitoring and cardiology consult was called. She also was in heart failure. When I saw Mrs. Kayla Taylor last evening, she was supine in bed in no acute distress at rest and she stated that she feels much better. She denies any chest pain or palpitations. Case was discussed yesterday with the resident and we restarted her on aspirin, Plavix was not recommended by gastroenterology (GI) and/or anticoagulation therapy. She has been on a beta javier as well as a statin and now we have continued same. She also received IV Lasix for her heart failure. This morning when I saw Mrs. Taylor on the floor, she was supine in bed in no acute distress at rest and she denies any chest pain, orthopnea, paroxysmal nocturnal dyspnea (PND), or pedal edema. Her shortness of breath has been back to its baseline. There is no report of bleeding. She denies any dizziness or lightheadedness. She continues to be in atrial fibrillation but with a controlled ventricular rate. She had an echocardiogram done yesterday and it revealed a moderately depressed global left ventricular systolic function with regional wall motion abnormalities. Otherwise, no significant valvular heart disease. Echocardiogram done last year revealed a normal left ventricular ejection function (LVEF). She denies any cough or hemoptysis or fever. There is no report of nausea, vomiting, diarrhea, or abdominal pain. There is no focal manifestation. She has a past medical history positive for coronary artery disease with acute myocardial infarction in 2001 that was treated with tissue plasminogen activator (TPA) and at that time, she had a cardiac catheterization done on 04/14/2002 and it revealed a 90% stenosis in the proximal left anterior descending (LAD) as well as a diagonal branch, and 80% stenosis in the mid the LAD. There was also an 80% to 90% stenosis in the left circumflex (LCX) and distally, the PL branch of the right coronary artery (RCA) was occluded with [id number] collaterals. The patient received percutaneous transluminal coronary angioplasty (PTCA)bare metal stent (BMS) to the LAD region as well as the diagonal, and the LCX region. In 2004, on March 2005, she had another cardiac catheterization and this was followed at that time by PTCA/drug-eluting stent (GIOVANI) to the PL branch of the RCA. LVEF was reported to be 65% and prior stents in the LAD, the diagonal, and the LCX all reported to be patent. She also has a history of hypertension, hyperlipidemia, chronic obstructive pulmonary disease (COPD) and she has been on continuous oxygen at two liters per minute and she follows with pulmonary. She also has anxiety disorder/depession, melanoma for which she has been monitored from [place], and mitral valve disease manifested by moderate mitral annulus calcification but no significant mitral regurgitation or mitral stenosis. There is no prior history of left ventricular systolic dysfunction, diabetes mellitus, kidney disease, thyroid disorders. Last fall, she was diagnosed with transient ischemic attack (TIA) and she was started initially on aspirin at 324 mg by mouth daily by neurology, then changed to 81 mg by mouth daily in combination with Plavix 75 mg by mouth daily. Since then, there has not been any recurrence. MEDICATIONS AT HOME: - aspirin 81 mg by mouth daily - clopidogrel 75 mg by mouth daily - metoprolol succinate 50 mg by mouth daily - paroxetine 20 mg by mouth daily - multivitamins with zinc and copper two capsules - Xalatan eye drops as directed - vitamin D3 1000 units by mouth daily - combination of vitamin D and calcium 500/400 one tablet by mouth daily - Symbicort 80/4.5 mcg two puffs twice a day - atorvastatin 80 mg by mouth three times weekly CURRENT MEDICATIONS: - pantoprazole 40 mg by mouth twice a day - metoprolol succinate 100 mg by mouth daily - atorvastatin 80 mg by mouth on Tuesday, Tuesday and Tuesday - Xalatan eye drop one drop daily in each eye - paroxetine 30 mg by mouth daily - Alphagan eye drop twice a day in each eye - Symbicort 80/4.5 mcg twice a day via inhalation - albuterol sulfate 2.5 mg four times a day as needed for shortness of breath - This morning, she had received by mouth Lasix and by mouth potassium, 60 mg and 40 mEq respectively. PAST SURGICAL HISTORY: Positive for surgery for melanoma done on twice, colostomy for diverticulitis in 1990 which was reversed in 1994, lumpectomy in the right breast in 2009, and bilateral cataract extraction. FAMILY HISTORY: Positive for coronary artery disease, both her sisters, her father. She has a son with diabetes mellitus. Her father had aortic aneurysm. SOCIAL HISTORY: The patient lives in the [facility] and her daughter as well as her son lives next door to her. She does not smoke or abuse alcohol. There is no illicit drugs. ALLERGIES: CSEPHALOSPORINS, PENICILLIN, and QUINOLONES. ADVANCED DIRECTIVES: The patient is a full code. PHYSICAL EXAMINATION: The patient is alert and oriented, in no acute distress at rest, and very pleasant. Her vital signs this morning were blood pressure 137/71 with a pulse of 100, respirations 20, and her maximum temperature was 100.0 degrees Fahrenheit with an oxygen saturation of 98% on two liters cannula. HEAD: Atraumatic. NECK: Supple and no jugular venous distention (JVD) appreciated. LUNGS: Did not reveal any wheezing or crackles but poor respiratory phase. HEART: Examination revealed an irregular heart sound without gallops. The point of maximal impulse (PMI) is slightly displaced inferiorly and laterally. There is no rub. I could not appreciate any murmurs. ABDOMEN: Unremarkable. EXTREMITIES: Reveal no pedal edema. NEUROLOGIC: Negative for a focal deficit. LABORATORY DATA: BMP done today revealed a sodium of 136, potassium 3.5, chloride 97, CO2 33, BUN 18, creatinine 0.89, GFR more than 60, fasting glucose 105, and calcium 8.2. Serum magnesium is 1.90. Serum troponin is 2.18, 1.78, and 1.17 and they were done on 03/29/2020. CBC today revealed WBC of 6.7, hemoglobin 10.3, hematocrit 31.4, and platelets 139,000. PT on admission was 15.3 with an INR of 1.24. COVID-19 PCR was negative. Chest x-ray on admission on 03/25/2020 revealed no acute cardiopulmonary disease process. Head CT on 03/26/2020 revealed no acute intracranial abnormalities. Done because of altered mental status. EKG on admission 03/25/2020 revealed normal sinus rhythm at 73 beats per minute and nonspecific ST-T abnormalities that may be related to artifact. EKG on 03/29/2020 revealed atrial fibrillation at 115 beats per minute and there was ST-T abnormalities noted in V4, V5, and V6 that may be related to ischemia. EKG also on 03/29/2020 revealed atrial fibrillation/flutter at 76 beats per minute and ST-T abnormalities noted in the precordial leads as well as in the high lateral leads that may be related to ischemia. A 2D echocardiogram on 03/29/2020 revealed a moderately depressed global left ventricular systolic dysfunction with regional wall motion abnormalities and LVEF was estimated at 35% to 40%. No significant valvular heart disease. Trace pericardial effusion was noted and moderate mitral annulus calcification. Only trace mitral regurgitation detected. IMPRESSION: An 89-year-old woman with a history of myocardial infarction in 2001 with percutaneous transluminal coronary angioplasty (PTCA)bare metal stent (BMS) to the left anterior descending, diagonal branch, and left circumflex (LCX), and in 2004, she had PTCA/drug-eluting stent (GIOVANI) to the PL branch of the right coronary artery (RCA) with a normal left ventricular ejection fraction (LVEF). She has multiple risk factors for coronary artery disease (CAD) and last August 2019, she had a transient ischemic attack (TIA) and also last fall, she had an echocardiogram that revealed a normal LVEF. Otherwise, she has a history of hypertension, hyperlipidemia, chronic obstructive pulmonary disease (COPD) for which she has been on two liters nasal cannula continuously, anxiety/depression and melanoma. She was admitted this time with lower gastrointestinal (GI) bleed and was found to have gastric ulcers and a clip was placed for her. She has not been bleeding. While in hospital, she developed heart failure and paroxysmal atrial fibrillation. Her echocardiogram done yesterday revealed now a moderate left ventricular systolic dysfunction with regional wall motion abnormalities. She denies any chest pain and when I saw her last evening and today, her shortness of breath was at its baseline. Her atrial fibrillation is under control. I have started her on physical therapy and she will be monitored for chest pain and if she remains asymptomatic, she can be discharged home and I will see her as outpatient. For her heart failure/left ventricular (LV) systolic dysfunction, I will add ramipril at a small dose and she will need, if she goes home, a basic metabolic panel (BMP) done in about 7-10 days to check her blood urea nitrogen (BUN), creatinine and serum potassium. She also should be discharged on a small dose of Lasix, preferably 20 mg by mouth daily because she is not retaining fluids. If she remains asymptomatic, I will do a pharmacologic or nuclear stress test as outpatient for further evaluation. If she becomes symptomatic, she will be referred for a cardiac catheterization. This will be discussed with the hospitalist as well as the patient's daughter. It was a pleasure to participate in the care of Mrs. Kayla Taylor for her underlying cardiac condition. I will continue to monitor along with you while in the hospital as needed and upon discharge, she will be given an appointment for followup. Please do not hesitate to call if any questions.
[2020-03-30] MEDS: LATANOPROST 0.005% OPHTH SOLN 2.5 ML OU SCH (20:54)
[2020-03-30] MEDS: PARoxetine 20 MG TAB PO SCH (20:55)
[2020-03-30] MEDS: METOPROLOL SUCC (TopROL XL) 100MG *XL* TAB PO SCH (20:55)
[2020-03-31] VITALS: BP 142/62
[2020-03-31 02:00] VITALS: BP_SYST 146; BP_SYST 167; BP_SYST 180; BP_DIAS 69; BP_DIAS 77; BP_DIAS 81
[2020-03-31 04:00] VITALS: BP 170/79
[2020-03-31 04:25] LABS: HEMATOCRIT 30.9 % (36.0-47.0); HEMOGLOBIN 10.5 g/dl (12.0-15.5); MEAN CORPUSCULAR HEMOGLOBIN 33.1 pg (27.0-33.0); MEAN CORPUSCULAR VOLUME 97.5 fl (80.0-96.0); PLATELET COUNT, AUTOMATED 141 10^3/uL (150-450); RED BLOOD COUNT 3.17 10^6/uL (4.00-5.40); WHITE BLOOD COUNT 7.3 10^3/uL (4.0-10.0)
[2020-03-31 04:58] LABS: BLOOD UREA NITROGEN 18 MG/DL (7-18); CARBON DIOXIDE LEVEL 34 MEQ/L (21-32); CHLORIDE LEVEL 94 MEQ/L (98-107); CREATININE FOR GFR 0.87 MG/DL (0.55-1.30); GLOMERULAR FILTRATION RATE > 60.0 (>32); GLUCOSE, FASTING 112 MG/DL (70-100); MAGNESIUM LEVEL 1.6 MG/DL (1.8-2.4); PHOSPHORUS LEVEL 1.9 MG/DL (2.5-4.9); POTASSIUM SERUM 3.5 MEQ/L (3.5-5.1); SODIUM LEVEL 134 MEQ/L (136-145)
[2020-03-31] MEDS: SLF 3 ML SYR IV SCH ×2 (06:00→14:00)
[2020-03-31] MEDS: SYMBICORT 80/4.5MCG INHALER 6GM INH SCH (07:27)
[2020-03-31 08:00] VITALS: BP 110/62
[2020-03-31] MEDS ORDERED: MAG SULF 1GM/100ML (MAG RUN) 1 GM in IV 1 EA IV SCH (08:00)
--- NOTE | 2020-03-31 08:22 | IPN ---
DATE: 03/31/2020 Mrs. Taylor tells me that she is feeling much better and she wants to go home. She denies any chest pain. She denies any sensation of palpitations. She is still somewhat short of breath with activity. Vital Signs: Blood pressure is 170/79, which is rather exceptional, generally she runs much lower blood pressures in 130s and 140s. Saturation is 97% on 2 liters of oxygen. She is afebrile. Negative balance 1 liter. Weight is 62 kg by report, which is very likely inaccurate. She is alert, oriented and appropriate. Does not appear to be in any distress. Heart rate has been in the 70s to low 100s, mostly atrial fibrillation. Saturation 97% on 2 liters of oxygen. Her lungs are clear to auscultation. I do not appreciate any wheezing or crackles. Heart exam reveals irregularly irregular rhythm. I do not appreciate any gallop, rub or murmur. Abdomen is soft without tenderness or rebound tenderness. Extremities have no edema. Neurologically, she is intact. LABORATORIES: Basic metabolic panel: Sodium 134, potassium 3.5, BUN 18, creatinine 0.9, glucose 112. CBC: WBC count 7.3, hemoglobin 10.5, hematocrit 30.9, platelet count 141,000. ASSESSMENT/PLAN: Mrs. Taylor is an 89-year-old who lady who does have coronary artery disease with history of several interventions in the past who presented with gastrointestinal (GI) bleeding about a week ago and had a gastric ulcer. She received 3 units of packed red blood cells, but then developed atrial fibrillation and congestive heart failure. She got several doses of Lasix and feels subjectively much improved. An echocardiogram revealed approximately moderate left ventricular systolic dysfunction. She certainly has a lot of negative prognostic indicators, most importantly, the fact that she cannot be anticoagulated at least for the near future. She wants to go home and I probably would agree to let her go home provided she has very good support at home. She tells me that she lives alone, but she has family on both sides of her house and her daughter visits her numerous times every day. Provided this is indeed correct, I would not have strong objections with the patient being discharged home. Dr. Karimi follows her on an outpatient basis and he plans to see her later this week. I did not make any medication changes today.
[2020-03-31] MEDS ORDERED: POTASSIUM CHLORIDE 10 MEQ SR TABLET PO ONE ×2 (08:45→09:30)
[2020-03-31] MEDS ORDERED: FUROSEMIDE 20 MG TAB PO SCH (09:00)
[2020-03-31] MEDS ORDERED: KCL 10MEQ/100ML SWI (KRUN) 10 MEQ in IV 1 EA IV SCH (09:00)
[2020-03-31] MEDS ORDERED: MAGNESIUM GLUCONATE 500 MG TAB PO ONE (10:00)
[2020-03-31] MEDS ORDERED: SODIUM PHOSPHATE INJ 30 MMOL in D5W 500 ML IV ONE (10:00)
[2020-03-31] MEDS ORDERED: K-PHOS NEUTRAL 250MG TABLET (SOD.PHOSPHATE/POT.PHOSPHATE) PO ONE ×3 (10:00→16:00)
[2020-03-31] MEDS: PANTOPRAZOLE 40MG TAB (PROTONIX) PO SCH (10:27)
[2020-03-31] MEDS: ramipriL 1.25 MG CAP PO SCH (10:27)
[2020-03-31] MEDS: BRIMONIDINE 0.15% OPHTH SOLN 5 ML OU SCH (10:27)
[2020-03-31 12:00] VITALS: BP 126/70
[2020-03-31] MEDS ORDERED: ALTA1CAP PO (12:35)
[2020-03-31] MEDS ORDERED: METO1TAB7 PO (12:35)
--- NOTE | 2020-03-31 15:02 | DS.PDOC ---
Discharge Summary General Date of Admission March 25, 2020 at 13:30 Date of Discharge March 31, 2020 Primary Care Physician: Umberto Knott M.D. Attending Physician: BRADLEY POPE MD Specialist/Consultants Involve: HOWIE DOVE MD Specialist/Consultants Involve Chace Discharge Summary PROCEDURES PERFORMED DURING STAY: [None]. ADMITTING DIAGNOSES: 1. Acute blood loss anemia 2. Hx TIA 3. COPD on chronic 2L O2 supplementation 4. HTN 5. Hx of CAD DISCHARGE DIAGNOSES: 1. Nonbleeding gastric ulcers s/p clipping 2. New onset Atrial fibrillation 3. Acute anemia 4. Hx TIA 5. COPD on chronic 2L O2 supplementation 6. HTN 7. Hx of CAD COMPLICATIONS/CHIEF COMPLAINT: Upper Gi Bleed. HISTORY OF PRESENT ILLNESS: Kayla sanders an 81-year-old female presented to the emergency department after 2 episodes of hematemesis this morning. She states she woke up around 3 AM the bathroom. She states she was feeling very dizzy while walking to and from the bathroom but did not fall. When she laid back down in bed, she started to feel very nauseous. She states over the next couple hours. She threw up twice. When her daughter stopped by to visit in the morning, the daughter noticed that the emesis was bloody. The daughter brought the patient to the emergency department to be further evaluated. The patient has no history of hematemesis or GI bleeding in the past. She has no history of liver disease. She has a history of a TIA in August 2019. At that time, she was started on 324 mg aspirin and followed up with neurology. In October 2019, her PCP started her on Plavix and lowered the aspirin dose to 81 mg, and she has been taking this daily since then. Since starting the Plavix, she has had no prior episodes of hematemesis or lightheadedness since starting the Plavix. HOSPITAL COURSE: Pt was admitted for further workup hematemesis and lightheadedness found to have hgb 7.6. Given her cardiac history, she was transfused a total of 3U pRBCs with goal of hgb > 8.0. On HD #2 the patient reportedly had AMS and was disoriented to person, place, time likely 2/2 hypertensive encephalopathy. Antihypertensives were continued. The patient underwent UGI with small bowel XR and was found to have irregularities in gastric mucosa concerning for gastric ulcers. She later underwent upper GI endoscopy and aforementioned ulcers were clipped. The patient subsequently went into new-onset atrial fibrillation likely 2/2 fluid overload. Her troponins were up to 2.18 but trended down to 1.17 and were likely elevated 2/2 demand ischemia. An Echocardiogram showed EF 35-40% and systolic dysfunction. She was given amiodarone and rate was controlled with metoprolol. She was diuresed with improvement in her breathing. On the day of discharge she was still in atrial fibrillation but was fully oriented x 3. She was sent home on ASA only, as risk of restarting Plavix with recently clipped gastric ulcers too high. She will follow up with Cardiology and GI within the next few weeks. DISCHARGE MEDICATIONS: Please see below. ALLERGIES: Please see below. PHYSICAL EXAMINATION ON DISCHARGE: VITAL SIGNS: Please see below. GENERAL: Alert, comfortable, in no acute distress HEENT: Normocephalic, atraumatic, sclera anicteric, moist mucous membranes NECK: Supple, no lymphadenopathy CARDIOVASCULAR: irregularly irregular, normal S1 and S2. No murmurs, rubs, or gallops RESPIRATORY: Clear to auscultation bilaterally with equal air entry bilaterally. No wheezing, rhonchi, or rales. Breathing somewhat labored ABDOMEN: Soft, nontender, nondistended, bowel sounds present. EXTREMITIES: No cyanosis or edema. Pulses 2+/4 in bilateral upper and lower extremities SKIN: No rash noted. NEUROLOGIC: Alert and oriented x3 to person, place, and time (month and year). No focal deficits appreciated PSYCHIATRIC: Mood and affect appropriate LABORATORY DATA: Please see below. IMAGING: UGI WITH SMALL BOWEL: Impression: 1. Tertiary waves. 2. There is a sliding type hiatal hernia. 3. 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 4. There is irregular mucosa in the antrum with small barium projections suspicious for ulcers. There is spasm of the antrum. Recommend endoscopy for further evaluation. HEAD CT: IMPRESSION: 1. No acute intracranial abnormality. 2. Nonacute/incidental findings in the report. ECHOCARDIOGRAM: IMPRESSION: 1. Moderately depressed global left ventricular systolic dysfunction with regional wall motion abnormalities that may be related to underlying coronary artery disease. 2. Aortic valve sclerosis with trace aortic radiation but no aortic stenosis. 3. Mitral annulus calcification with trace mitral regurgitation. 4. Trace pericardial effusion. 5. This was compared with most recent echocardiogram done last fall, left ventricular systolic function was normal. PROGNOSIS: fair ACTIVITY: [As tolerated]. DIET: 2g sodium DISCHARGE PLAN: home DISPOSITION: . DISCHARGE INSTRUCTIONS: 1. Follow up with [facility] within 7 days 2. Follow up with GI within 7 days ITEMS TO FOLLOWUP ON ON OUTPATIENT: 1. none DISCHARGE CONDITION: [Stable]. TIME SPENT ON DISCHARGE: Greater than 35 minutes. Attending attestation: I evaluated and examined the patient in person; I discussed the care with Resident in detail and agree with the plan above. Vital Signs/I&Os Vital Signs Date Time Temp Pulse Resp B/P (MAP) Pulse Ox O2 Delivery O2 Flow Rate FiO2 03/31/20 12:00 99.4 87 18 126/70 (88) 99 Nasal Cannula 2.0 03/25/20 16:25 100 I&O- Last 24 Hours up to 6 AM 03/31/20 06:00 Intake Total 786 ml Output Total 1900 ml Balance -1114 ml Laboratory Data Labs 24H Laboratory Tests 2 03/31/20 03:52: Nucleated Red Blood Cells % (auto) 0.0, Anion Gap 6L, Glomerular Filtration Rate > 60.0, Calcium Level 8.0L, Phosphorus Level 1.9#L, Magnesium Level 1.6L CBC/BMP Laboratory Tests 03/31/20 03:52 Microbiology Microbiology 03/26/20 Stool Occult Blood (JC) - Final, Complete Discharge Medications Scheduled Aspirin (Aspirin EC) 81 Mg Tablet.dr, 81 MG PO QHS, (Reported) Atorvastatin Calcium (Atorvastatin Calcium) 80 Mg Tab, 80 MG PO 3XW, (Reported) TUESDAY, TUESDAY AND TUESDAY EVENINGS Brimonidine Tartrate (Alphagan P) 0.15 % Emely, 1 DROP OU BID, (Reported) Budesonide/Formoterol (Symbicort 80-4.5 Mcg Inhaler) 60 Puff/Inhaler Aers, 2 PUFF INH BID, (Reported) Calcium Carbonate/Vitamin D3 (Calcium 500-Vit D3 400 Tablet) 1 Tab Tab, 1 TAB PO QHS, (Reported) Cholecalciferol (Vitamin D3) (Vitamin D3) 1,000 Unit Tablet, 1,000 UNITS PO QHS, (Reported) Latanoprost (Xalatan) 0.005 % Emely, 1 DROP OU QHS, (Reported) Metoprolol Succinate (Metoprolol Succinate) 50 Mg Tab, 100 MG PO QHS Paroxetine HCl (Paroxetine) 20 Mg Tab, 20 MG PO QHS, (Reported) Ramipril (Altace) 1.25 Mg Capsule, 1.25 MG PO DAILY Vit A/Vit C/Vit E/Zinc/Copper (Preservision Areds Softgel) 1 Cap Cap, 2 CAP PO QHS, (Reported) Scheduled PRN Albuterol Sulf (Albuterol Sulfate) 2.5 Mg/3 Ml Nebu, 2.5 MG INH QID PRN for SHORTNESS OF BREATH, (Reported) Albuterol Sulfate (Ventolin Hfa) 108 Mcg/Act Aer, 2 PUFFS INH Q4H PRN for SHORTNESS OF BREATH, (Reported) Docusate Sodium (Colace) 100 Mg Capsule, 100 MG PO BID PRN for CONSTIPATION, (Reported) Nitroglycerin (Nitrostat) 0.4 Mg Subl, 0.4 MG SL NITRO PRN for CHEST PAIN, (Reported) Allergies Coded Allergies: Cephalosporins (Verified Allergy, Unknown, Rash, 09/22/19) Penicillins (Verified Allergy, Unknown, Rash, 09/22/19) Quinolones (Verified Allergy, Unknown, Rash, 09/22/19) GME ATTESTATION GME ATTESTATION My faculty preceptor for this patient encounter was physically present during the encounter and was fully available. All aspects of the patient interview, examination, medical decision making process, and medical care plan development were reviewed and approved by the faculty preceptor. The faculty preceptor is aware and concurs with the plan as stated in the body of this note and will attest to such by his/her cosignature. ORION DAVID MD March 31, 2020 15:02 BRADLEY POPE MD April 07, 2020 21:31
--- NOTE | 2020-04-09 14:59 | REP ---
Clinical: Shortness of breath. Labored breathing. Comparison: 03/25/2020. Findings: Mediastinum and cardiac silhouette are stable. Lung de jesus demonstrate chronic changes. Left basilar atelectasis/early infiltrate cannot be excluded and should be correlated clinically. No discrete focal consolidation or effusion. No pneumothorax. Skeletal structures are intact and stable. Impression: Chronic stable changes. Subtle early changes at the left base cannot definitively be excluded and should be correlated with auscultation. Electronically Signed by Abner Jain MD 04/09/2020 02:50 P
== END 2020-03-31 17:31 | disposition home or self-care (01) | DRG 377 ==
LOC: M ED 10:57 → EDBD 10:57 → M ED INP 13:30 → M PCU 15:05 → ENRESERV 15:35 → M MS5PR 03-27 18:26 → M PCU 03-29 14:01
PROVIDERS: ADMIT Internal Medicine; ATTEND Internal Medicine
PROC: 30233N1 Transfusion of Nonautologous Red Blood Cells into Peripheral Vein, Percutaneous Approach (ICD-10-PCS; 2020-03-25)
PROC: 0DJ08ZZ Inspection of Upper Intestinal Tract, Via Natural or Artificial Opening Endoscopic (ICD-10-PCS; principal; 2020-03-28 05:00)
DX: K92.0 Hematemesis (principal); I50.23 Acute on chronic systolic (congestive) heart failure; J96.11 Chronic respiratory failure with hypoxia; I67.4 Hypertensive encephalopathy; D62 Acute posthemorrhagic anemia; J44.9 Chronic obstructive pulmonary disease, unspecified; K25.9 Gastric ulcer, unspecified as acute or chronic, without hemorrhage or perforation; I48.0 Paroxysmal atrial fibrillation; I10 Essential (primary) hypertension; Z86.73 Personal history of transient ischemic attack (TIA), and cerebral infarction without residual deficits; I25.10 Atherosclerotic heart disease of native coronary artery without angina pectoris; Z79.899 Other long term (current) drug therapy; Z79.82 Long term (current) use of aspirin; Z88.0 Allergy status to penicillin; Z88.8 Allergy status to other drugs, medicaments and biological substances; Z95.2 Presence of prosthetic heart valve; Z85.820 Personal history of malignant melanoma of skin; F41.9 Anxiety disorder, unspecified; F32.9 Major depressive disorder, single episode, unspecified; I25.2 Old myocardial infarction

== ENCOUNTER → 2020-07-04 | Outpatient (REF) | payer MEDICARE, OTHER ==
[~2020-07-04] MED LIST changes: +ALTA1CAP PO; +ASPI81TA26 PO; +CLOP75TA2 PO; +COLA100C5 PO; +D31000TA2 PO
[2020-07-04 19:10] LABS: BLOOD UREA NITROGEN 10 MG/DL (7-18); CREATININE FOR GFR 0.78 MG/DL (0.55-1.30); FERRITIN 143 NG/ML (8-252); GLOMERULAR FILTRATION RATE > 60.0 (>32); IRON (FE) 117 UG/DL (50-170); TOTAL IRON BINDING CAPACITY 234 UG/DL (250-450)
[2020-07-04 19:14] LABS: H PYLORI QUALITATIVE IgG NEGATIVE (NEGATIVE)
[2020-07-04 19:17] LABS: VITAMIN B12 LEVEL 336 PG/ML
[2020-07-04 19:18] LABS: BASO % 0.6 % (0.0-1.0); EOS # 0.2 10^3/uL (0.0-0.5); HEMOGLOBIN 11.3 g/dl (12.0-15.5); LYMPH % 16.5 % (24.0-44.0); MEAN CORPUSCULAR HEMOGLOBIN 33.8 pg (27.0-33.0); MEAN CORPUSCULAR HGB CONC 31.4 g/dl (32.0-36.5); MEAN CORPUSCULAR VOLUME 107.8 fl (80.0-96.0); MONO # 0.5 10^3/uL (0.0-0.8); MONO % 8.3 % (0.0-5.0); NEUTROPHILS # 4.5 10^3/uL (1.5-8.5); NEUTROPHILS % 71.3 % (36.0-66.0); PLATELET COUNT, AUTOMATED 191 10^3/uL (150-450); RED BLOOD COUNT 3.34 10^6/uL (4.00-5.40); WHITE BLOOD COUNT 6.3 10^3/uL (4.0-10.0)
[2020-07-04 19:19] LABS: FOLATE > 24.0 NG/ML
== END ==
LOC: M LABDRAWC 16:12
PROVIDERS: ATTEND Internal Medicine Gastroenterology
DX: D62 Acute posthemorrhagic anemia (principal)

== ENCOUNTER → 2020-09-09 | Outpatient (CLI) | payer MEDICARE, OTHER ==
--- NOTE | 2020-09-09 14:26 | REPMRS ---
Patient History The patient states she has not had a clinical breast exam in over a year. Family history of breast cancer at age 50 or over in maternal aunt. Benign ultrasound-guided core biopsy of the right breast, August 06, 2016. Benign ultrasound-guided core biopsy of the right breast, August 22, 2015. Malignant localization of breast nodule of the right breast, August 19, 2010. Stereotatic Breast Biopsy of the right breast, August 03, 2010. Radiation therapy of the right breast. 3D TOMOSYNTHESIS WAS PERFORMED. Volpara breast density c . Digital Woman Screen Mammo: September 09, 2020 - Exam #: [id number] Bilateral CC and MLO view(s) were taken. Technologist: Megan Russell, Technologist Prior study comparison: August 20, 2019, bilateral digital woman screen mammo performed at [facility]. July 24, 2018, bilateral digital woman screen mammo performed at [facility]. FINDINGS: There are scattered fibroglandular densities. There is no evidence of cancer on this mammogram. There are stable post treatment changes on the right. Large coarse benign appearing calcifications are present. No significant changes when compared with prior studies. Assessment: BI-RADS/ACR category 2 mammogram. Benign Findings. Recommendation Routine screening mammogram of both breasts in 1 year (for women over age 40). This mammogram was interpreted with the aid of an FDA-approved computer-aided dectection system. Electronically Signed By: Saurabh Marley MD 09/09/20 [id number]
== END ==
LOC: M WHC 13:00
PROVIDERS: ATTEND Family Medicine
DX: Z12.31 Encounter for screening mammogram for malignant neoplasm of breast (principal)

== ENCOUNTER → 2020-10-23 | Outpatient (CLI) | payer MEDICARE, OTHER | LOC: M LABSMTC 13:49 | PROVIDERS: ATTEND Family Medicine | DX: Z11.59 Encounter for screening for other viral diseases (principal) ==

== ENCOUNTER → 2020-12-01 | Outpatient (REF) | payer MEDICARE, OTHER ==
[2020-12-02 12:19] LABS: BASO # 0.1 10^3/uL (0.0-0.2); BASO % 0.9 % (0.0-1.0); EOS # 0.2 10^3/uL (0.0-0.5); EOS % 2.8 % (0.0-3.0); HEMATOCRIT 33.9 % (36.0-47.0); HEMOGLOBIN 10.4 g/dl (12.0-15.5); LYMPH # 1.1 10^3/uL (1.5-5.0); LYMPH % 15.9 % (24.0-44.0); MEAN CORPUSCULAR HEMOGLOBIN 34.3 pg (27.0-33.0); MEAN CORPUSCULAR HGB CONC 30.7 g/dl (32.0-36.5); MEAN CORPUSCULAR VOLUME 111.9 fl (80.0-96.0); MONO # 0.6 10^3/uL (0.0-0.8); MONO % 8.6 % (0.0-5.0); NEUTROPHILS # 4.8 10^3/uL (1.5-8.5); NEUTROPHILS % 71.4 % (36.0-66.0); PLATELET COUNT, AUTOMATED 217 10^3/uL (150-450); RED BLOOD COUNT 3.03 10^6/uL (4.00-5.40); WHITE BLOOD COUNT 6.7 10^3/uL (4.0-10.0)
[2020-12-02 12:50] LABS: BLOOD UREA NITROGEN 16 MG/DL (7-18); CALCIUM LEVEL 9.9 MG/DL (8.8-10.2); CARBON DIOXIDE LEVEL 36 MEQ/L (21-32); CHLORIDE LEVEL 102 MEQ/L (98-107); CREATININE FOR GFR 0.72 MG/DL (0.55-1.30); GLOMERULAR FILTRATION RATE > 60.0 (>32); GLUCOSE, FASTING 70 MG/DL (70-100); POTASSIUM SERUM 4.6 MEQ/L (3.5-5.1); SODIUM LEVEL 140 MEQ/L (136-145)
== END ==
LOC: M SFHCCLAY 14:10
PROVIDERS: ATTEND Family Medicine
DX: I10 Essential (primary) hypertension (principal); Z87.19 Personal history of other diseases of the digestive system
CPT/HCPCS: 80048; 85025; G0463

== ENCOUNTER → 2021-04-24 | Outpatient (REF) | payer MEDICARE, OTHER ==
[~2021-04-24] MED LIST changes: -LISI-542 PO; +LISI-898 PO; +LISI10TA22 PO; -LISI10TA4 PO
[2021-04-24 16:04] LABS: BASO # 0.1 10^3/uL (0.0-0.2); BASO % 0.6 % (0.0-1.0); EOS # 0.2 10^3/uL (0.0-0.5); EOS % 2.3 % (0.0-3.0); HEMATOCRIT 31.7 % (36.0-47.0); HEMOGLOBIN 9.8 g/dl (12.0-15.5); LYMPH % 11.1 % (24.0-44.0); MEAN CORPUSCULAR HEMOGLOBIN 32.6 pg (27.0-33.0); MEAN CORPUSCULAR HGB CONC 30.9 g/dl (32.0-36.5); MEAN CORPUSCULAR VOLUME 105.3 fl (80.0-96.0); MONO # 0.6 10^3/uL (0.0-0.8); MONO % 6.9 % (2.0-8.0); NEUTROPHILS # 6.8 10^3/uL (1.5-8.5); NEUTROPHILS % 78.8 % (36.0-66.0); PLATELET COUNT, AUTOMATED 247 10^3/uL (150-450); RED BLOOD COUNT 3.01 10^6/uL (4.00-5.40); WHITE BLOOD COUNT 8.7 10^3/uL (4.0-10.0)
[2021-04-24 16:19] LABS: ALBUMIN 3.5 GM/DL (3.2-5.2); ALT/SGPT 17 U/L (12-78); BILIRUBIN,TOTAL 0.6 MG/DL (0.2-1.0); BLOOD UREA NITROGEN 13 MG/DL (7-18); CALCIUM LEVEL 9.6 MG/DL (8.8-10.2); CARBON DIOXIDE LEVEL 34 MEQ/L (21-32); CHLORIDE LEVEL 103 MEQ/L (98-107); CHOLESTEROL LEVEL 134 MG/DL (<200); CHOLESTEROL RISK RATIO 2.271 (<5); CREATININE FOR GFR 0.75 MG/DL (0.55-1.30); GLOMERULAR FILTRATION RATE > 60.0 (>32); GLUCOSE, FASTING 120 MG/DL (70-100); HDL CHOLESTEROL 59 MG/DL (>40); IRON (FE) 60 UG/DL (50-170); LDL CHOLESTEROL 54 MG/DL (<100); NON-HDL-C 75 MG/DL; SODIUM LEVEL 141 MEQ/L (136-145); TOTAL PROTEIN 6.5 GM/DL (6.4-8.2); TRIGLYCERIDES LEVEL 105 MG/DL (<150)
== END ==
LOC: M SFHCCLAY 09:26
PROVIDERS: ATTEND Family Medicine
DX: I10 Essential (primary) hypertension (principal); Z87.19 Personal history of other diseases of the digestive system; E78.00 Pure hypercholesterolemia, unspecified

== ENCOUNTER → 2021-06-16 | Outpatient (REF) | payer MEDICARE, OTHER ==
[~2021-06-16] MED LIST changes: -LISI-898 PO; +LISI5TAB11 PO
[2021-06-16 18:21] LABS: BASO # 0.1 10^3/uL (0.0-0.2); BASO % 0.6 % (0.0-1.0); EOS # 0.2 10^3/uL (0.0-0.5); EOS % 2.3 % (0.0-3.0); HEMATOCRIT 34.6 % (36.0-47.0); HEMOGLOBIN 10.6 g/dl (12.0-15.5); LYMPH # 1.2 10^3/uL (1.5-5.0); MEAN CORPUSCULAR HEMOGLOBIN 32.6 pg (27.0-33.0); MEAN CORPUSCULAR HGB CONC 30.6 g/dl (32.0-36.5); MEAN CORPUSCULAR VOLUME 106.5 fl (80.0-96.0); MONO # 0.7 10^3/uL (0.0-0.8); MONO % 7.2 % (2.0-8.0); NEUTROPHILS # 6.8 10^3/uL (1.5-8.5); NEUTROPHILS % 76.2 % (36.0-66.0); PLATELET COUNT, AUTOMATED 272 10^3/uL (150-450); RED BLOOD COUNT 3.25 10^6/uL (4.00-5.40)
[2021-06-16 18:43] LABS: IRON (FE) 129 UG/DL (50-170)
[2021-06-16 18:53] LABS: VITAMIN B12 LEVEL 685 PG/ML (247-911)
[2021-06-16 18:54] LABS: FOLATE > 24.0 NG/ML (>5.4)
== END ==
LOC: M SFHCCLAY 11:19
PROVIDERS: ATTEND Family Medicine
DX: D64.9 Anemia, unspecified (principal)